=== PATIENT | female | born 1975 | race Caucasian/White ===

== ENCOUNTER 2020-08-19 17:45 | Emergency (ER) | payer MEDICAID, SELFPAY ==
[2020-08-19 17:45] VITALS: BP 142/94; PULSE 88; RESP 18; TEMP 36.6; O2SAT 97; BMI 27.4
[2020-08-19 17:47] VITALS: BP 142/94; PULSE 88; RESP 18; TEMP 36.6; O2SAT 97
[2020-08-19 17:53] VITALS: O2SAT 96
--- NOTE | 2020-08-19 18:02 | EKG12_ITS ---
Test Reason : Blood Pressure : / mmHG Vent. Rate : 076 BPM Atrial Rate : 076 BPM P-R Int : 138 ms QRS Dur : 084 ms QT Int : 364 ms P-R-T Axes : 022 019 033 degrees QTc Int : 409 ms Normal sinus rhythm Normal ECG Confirmed by BRIDGER LANGE, VICENTA ([id number]), communications editor RAKESH ZURITA ([id number]) on 08/25/2020 10:04:09 AM Referred By: MARGRET Confirmed By:ADAAM SPARKS MD
--- NOTE | 2020-08-19 18:02 | RAD_ITS ---
STUDY: X-RAY CHEST REASON FOR EXAM: Female, 44 years old. cough TECHNIQUE: 1 view COMPARISON: None. FINDINGS: The lung alaniz are well-expanded with mild infiltrates in the mid and lower lung zones. There is no demonstrated pleural abnormality. Normal size heart. Normal mediastinum and rhona. Normal visualized pulmonary arteries. Normal visualized aortic arch and descending thoracic aorta. Normal visualized thoracic spine. Normal visualized ribs, clavicles, and shoulders. There is no demonstrated abnormality of the visualized soft tissue structures of the upper abdomen. RAD/Chest 1 View (Portable) IMPRESSION: Mild bilateral mid and lower lung zone infiltrates consistent with a pneumonic process of viral, atypical or typical nature. Electronically Signed: Albania Conde MD at 18:55 EST , Service support ,
--- NOTE | 2020-08-19 18:03 | ED.DCSUM_ITS ---
History of Present Illness Chief Complaint: Cough Informant: Patient Onset: Days Context: Gradual Onset Current Severity: Mild Maximum Severity: Moderate Narrative: Patient presents with fever and body aches. She believes she has Covid. Symptoms started on the . She reports low-grade fevers with generalized body aches and cough. She has noted increased chest heaviness and chest congest ion which prompted her visit to the ER today. Past Medical History - Allergies and Home Meds Allergies/Adverse Reactions: Allergies prednisone Adverse Reaction (Verified 08/19/20 18:51) NEEDS FOLLOW-UP Primary Care Physician: Abbe Ugalde DO [COURTESY STAFF PHYSICIAN] - Past Medical History: None Lives: With Family Smoking Status: Never smoker Review of Systems General: Reports: Fever Eyes: Denies: Visual changes - bilaterally ENT: Denies: Bilateral ear pain Cardiovascular: Reports: Chest pain Respiratory: Reports: Dyspnea, Cough Gastrointestinal: Denies: Abdominal pain, Vomiting Musculoskeletal: Reports: Myalgias Skin: Denies: Rash Neurological: Denies: Headache Hematologic: Denies: Easy bruising, Easy bleeding Allergy: Denies: Uticaria Physical Exam Vital Signs/Narrative: Vital Signs Temp Pulse Resp BP Pulse Ox 08/19/20 17:47 97.9 F 88 18 142/94 H 97 08/19/20 17:45 97.9 F 88 18 142/94 H 97 Inital Vital Signs reviewed: Yes General: Well nourished, Well developed Neck: Supple Cardiovascular: Regular rate, Regular rhythm Respiratory: No distress, CTA bilaterally Abdomen: Soft, Nontender Extremities: Nontender Skin: Normal color Neurological: Alert, Oriented x3 Psychological: Normal affect Diagnostic/Tx/Re-eval Chest X-Ray - ED: 1 View, Read by ED Physician, - Impressions Chest X-Ray 08/19/20 18:02 IMPRESSION: Mild bilateral mid and lower lung zone infiltrates consistent with a pneumonic process of viral, atypical or typical nature. Electronically Signed: Albania Conde MD at 18:55 EST , Service support , Chest CTA 08/19/20 19:38 IMPRESSION: Negative for pulmonary embolus. Normal thoracic aorta. Normal heart without pericardial effusion or coronary calcifications. Numerous small groundglass infiltrates primarily peripheral consistent with pneumonia viral/atypical or typical nature. Imaging features commonly reported with Covid 19 pneumonia. Negative for pleural effusion. No acute osseous findings. No acute findings in the uppermost abdomen. Electronically Signed: Albania Conde MD at 20:48 EST , Service support , 08/19/20 18:02 Chest 1 View (Portable) [RAD] Stat 08/19/20 19:38 CTA Chest W/WO Contrast [CT] Stat Laboratory Results 08/19/20 08/19/20 08/19/20 19:00 19:00 19:00 WBC 3.9 L RBC 4.95 Hgb 14.4 Hct 44.5 MCV 89.9 MCH 29.1 MCHC 32.4 RDW Std Deviation 41.4 RDW Coeff of Lindsay 12.5 Plt Count 131 L MPV 10.2 Immature Gran % (Auto) 0.300 Neut % (Auto) 62.7 Lymph % (Auto) 26.4 [place] % (Auto) 8.2 Eos % (Auto) 2.1 Baso % (Auto) 0.3 Absolute Neuts (auto) 2.5 Absolute Lymphs (auto) 1.03 Nucleated RBC % 0 D-Dimer Quant (PE/DVT) 0.55 H* Sodium 137 Potassium 6.6 H* Chloride 110 H Carbon Dioxide 24.0 Anion Gap 3 L BUN 11 Creatinine 0.94 Estim Creat Clear Calc 64.58 Est GFR (MDRD) Af Amer 82 Est GFR (MDRD) Non-Af 68 BUN/Creatinine Ratio 11.7 Glucose 103 Calcium 8.6 Troponin I < 0.015 08/19/20 20:01 WBC RBC Hgb Hct MCV MCH MCHC RDW Std Deviation RDW Coeff of Lindsay Plt Count MPV Immature Gran % (Auto) Neut % (Auto) Lymph % (Auto) [place] % (Auto) Eos % (Auto) Baso % (Auto) Absolute Neuts (auto) Absolute Lymphs (auto) Nucleated RBC % D-Dimer Quant (PE/DVT) Sodium Potassium 3.8 Chloride Carbon Dioxide Anion Gap BUN Creatinine Estim Creat Clear Calc Est GFR (MDRD) Af Amer Est GFR (MDRD) Non-Af BUN/Creatinine Ratio Glucose Calcium Troponin I - EKG Initial EKG Interpretation: Sinus Rhythm - Sinus at 76 with no acute ischemia. - Medical Decision Making Patient presents with symptoms consistent with Covid. She believes she has Covid and I do agree with her. We will not obtain a test as it does not significantly change our treatment. Chest x-ray per my interpretation reveals mild hazy peripheral changes concerning for viral infiltrate. D-dimer is slightly elevated and CTA does confirm viral pneumonia. Patient's O2 sat is 96% on room air. We did discuss with her treatment at home. She has had bad reactions with steroids in the past and does not wish to take Decadron at this time. I will write her a prescription for naproxen to help with body aches. She will also take Mucinex. I encouraged her to get a pulse oximeter to monitor her oxygen level at home. ED Disposition - Plan for ED Patient: Disposition: Home or Assisted Living Diagnosis: COVID-19 Instructions: Coronavirus Disease 2019 (COVID-19): Overview, Coronavirus Disease 2019 (COVID-19): Prevention, Coronavirus Disease 2019 (COVID-19): Caring for Yourself or Others Prescriptions: Naproxen [Naprosyn] 500 mg PO BID PRN PRN #20 tab PRN Reason: Pain Score 4-10 Transmission Status: Pending to [id number]
--- NOTE | 2020-08-19 18:13 | NURSING ---
NO OLD EKGS
[2020-08-19] MEDS: Ketorolac 30 MG/ML Syringe IV (19:08)
[2020-08-19 19:16] LABS: Absolute Lymphocyte Count 1.03 X10^3/uL (0.83-4.51); Absolute Neutrophil Count 2.5 X10^3/uL (2.0-7.7); Basophil# 0.01 X10^3/uL; Basophil% 0.3 % (0-1); Eosinophil# 0.08 X10^3/uL; Eosinophils% 2.1 % (0-5); Hematocrit 44.5 % (37-47); Hemoglobin 14.4 g/dL (12.0-15.0); Lymphocyte # 1.03 X10^3/ul (4.0); Lymphocyte % 26.4 % (19-41); Mean Corp Hgb Conc 32.4 g/dL (32-36); Mean Corpuscular Hgb 29.1 pg (27.0-32.0); Mean Corpuscular Volume 89.9 fL (81-99); Mean Platelet Vol. 10.2 fl (6.2-12.0); Monocyte# 0.32 X10^3/uL; Monocyte% 8.2 % (0-10); NRBC Flagged by Analyzer 0 % (0-5); Neutrophil # 2.45 X10^3/uL (2.7-7.7); Neutrophil % 62.7 % (47-70); Platelet Count 131 K/mm3 (150-450); RBC Distribution Width CV 12.5 % (11.6-14.6); RBC Distribution Width SD 41.4 fl (35.1-43.9); Red Blood Count 4.95 M/mm3 (4.2-5.4); White Blood Count 3.9 K/mm3 (4.4-11.0)
[2020-08-19 19:29] LABS: Anion Gap 3 (5-15); BUN 11 mg/dL (7-18); BUN/Creat Ratio 11.7 RATIO (10-20); Calcium,Total 8.6 mg/dL (8.5-10.1); Chloride 110 mmol/L (98-107); Creatinine, Serum 0.94 mg/dL (0.55-1.02); EST Glomerular Filtration Rate 68 mL/min (>60); Est Glom Filt Rate - Afr Amer 82 mL/min (>60); Estimated Creatinine Clearance 64.58 ml/min; Glucose 103 mg/dL (74-106); Potassium 6.6 mmol/L (3.5-5.1); Sodium Level 137 mmol/L (136-145)
[2020-08-19 19:36] LABS: D-Dimer Quantitative (DVT/PE) 0.55 FEU/ug/m (0.27-0.49)
--- NOTE | 2020-08-19 19:38 | CT_ITS ---
STUDY: CTA CHEST REASON FOR EXAM: Female, 44 years old. CP, COVID POS, ELEV D-DIMER. RADIATION DOSAGE (If Supplied By Facility): CTDIvol = ( 10.485 ) mGy, DLP = ( 393.63 ) mGycm TECHNIQUE: The examination was performed with the intravenous administration of IV 100mL Isovue-370. Post-processing of the angiographic images was performed, with multiplanar reformation and 3D reconstruction. Individualized dose optimization techniques were used for this CT. COMPARISON: Chest radiograph of 08/19/2020 FINDINGS: Normal enhancement of the main pulmonary artery and right and left pulmonary arteries. Normal enhancement of the bilateral peripheral pulmonary arteries. There is no demonstrated pulmonary embolism. Normal thoracic aorta and visualized great vessels. There is no demonstrated aortic dissection. Normal heart and pericardium. Normal mediastinum. Normal hilar regions. Normal visualized trachea and bronchi. The lungs are well expanded. Numerous small groundglass peripheral infiltrates. Normal pleura. There are no pleural effusions. Normal chest wall structures. Normal osseous structures. No acute findings in the uppermost abdomen. CT/CTA Chest W/WO Contrast IMPRESSION: Negative for pulmonary embolus. Normal thoracic aorta. Normal heart without pericardial effusion or coronary calcifications. Numerous small groundglass infiltrates primarily peripheral consistent with pneumonia viral/atypical or typical nature. Imaging features commonly reported with Covid 19 pneumonia. Negative for pleural effusion. No acute osseous findings. No acute findings in the uppermost abdomen. Electronically Signed: Albania Conde MD at 20:48 EST , Service support ,
[2020-08-19 19:45] VITALS: BP 92/74; PULSE 73; RESP 14; O2SAT 96
[2020-08-19 20:28] LABS: Potassium 3.8 mmol/L (3.5-5.1)
[2020-08-19 21:00] VITALS: BP 115/73; PULSE 73; RESP 22; O2SAT 96
[2020-08-19 21:24] VITALS: BP 115/73; PULSE 71; RESP 18; O2SAT 96
== END 2020-08-19 21:32 | disposition home or self-care (01) ==
PROVIDERS: Emergency Provider Emergency Medicine; PCP Nurse Practitioner Family
DX: U07.1 COVID-19 (principal)
CPT/HCPCS: 71045; 71275; 80048; 84132; 84484; 85025; 85379; 93005; 96374; 99285; Q9967; A4216

== ENCOUNTER 2021-02-03 14:41 | Emergency (ER) | payer MEDICAID, SELFPAY ==
[2020-10-18 10:56] VITALS: BMI 28.3
[2021-02-03 14:42] VITALS: BP 160/93; PULSE 77; RESP 16; TEMP 36.3; O2SAT 97; BMI 27.4
--- NOTE | 2021-02-03 15:37 | EKG12_ITS ---
Test Reason : CP AND ARM PAIN Blood Pressure : / mmHG Vent. Rate : 066 BPM Atrial Rate : 066 BPM P-R Int : 142 ms QRS Dur : 082 ms QT Int : 360 ms P-R-T Axes : 015 019 050 degrees QTc Int : 377 ms Normal sinus rhythm Normal ECG Confirmed by SUSHIL LANGE, CHRISSY ([id number]), state editor RAKESH ZURITA ([id number]) on 02/06/2021 1:34:23 PM Referred By: JEWELS/ASHLIE Confirmed By:CHRISSY LING MD
--- NOTE | 2021-02-03 15:40 | RAD_ITS ---
STUDY: X-RAY CHEST REASON FOR EXAM: Female, 45 years old. chest pain TECHNIQUE: Single AP portable view of the chest. COMPARISON: 08/19/2020 FINDINGS: The lungs are clear and expanded. There is no demonstrated pleural abnormality. Normal size heart. Normal mediastinum and rhona. Normal visualized pulmonary arteries. Normal visualized aortic arch and descending thoracic aorta. Normal visualized thoracic spine. Normal visualized ribs, clavicles, and shoulders. There is no demonstrated abnormality of the visualized soft tissue structures of the upper abdomen. RAD/Chest 1 View (Portable) IMPRESSION: Normal x-ray examination of the chest. Electronically Signed: Ciro López MD at 16:21 EDT Tel , Service support ,
[2021-02-03 15:44] VITALS: PULSE 60; RESP 14; O2SAT 97
[2021-02-03 15:56] LABS: Absolute Lymphocyte Count 1.96 X10^3/uL (0.83-4.51); Basophil# 0.04 X10^3/uL; Basophil% 0.5 % (0-1); Eosinophil# 0.12 X10^3/uL; Eosinophils% 1.6 % (0-5); Hematocrit 41.7 % (37-47); Hemoglobin 13.8 g/dL (12.0-15.0); Lymphocyte # 1.96 X10^3/ul (0.83-4.51); Lymphocyte % 25.9 % (19-41); Mean Corp Hgb Conc 33.1 g/dL (32-36); Mean Corpuscular Hgb 29.4 pg (27.0-32.0); Mean Corpuscular Volume 88.9 fL (81-99); Mean Platelet Vol. 10.2 fl (6.2-12.0); Monocyte# 0.46 X10^3/uL; Monocyte% 6.1 % (0-10); NRBC Flagged by Analyzer 0 % (0-5); Neutrophil # 4.97 X10^3/uL (2.7-7.7); Neutrophil % 65.6 % (47-70); Platelet Count 218 K/mm3 (150-450); RBC Distribution Width CV 12.3 % (11.6-14.6); Red Blood Count 4.69 M/mm3 (4.2-5.4); White Blood Count 7.6 K/mm3 (4.4-11.0)
[2021-02-03 16:08] LABS: Anion Gap 8 (5-15); BUN 13 mg/dL (7-18); BUN/Creat Ratio 14.5 RATIO (10-20); Calcium,Total 9.9 mg/dL (8.5-10.1); Chloride 106 mmol/L (98-107); EST Glomerular Filtration Rate 72 mL/min (>60); Est Glom Filt Rate - Afr Amer 87 mL/min (>60); Estimated Creatinine Clearance 66.73 ml/min; Glucose 94 mg/dL (74-106); Potassium 3.7 mmol/L (3.5-5.1); Sodium Level 139 mmol/L (136-145)
[2021-02-03 16:19] VITALS: BP 121/76; PULSE 52; RESP 16; O2SAT 98
[2021-02-03 16:38] LABS: D-Dimer Quantitative (DVT/PE) <= 0.27 FEU/ug/m (0.27-0.49)
--- NOTE | 2021-02-03 17:00 | ED.VIS.CHEST ---
HPI History of Present Illness Chief Complaint: Chest Pain Narrative Narrative: Patient is a 45-year-old female with history of mitral valve prolapse presenting with chest pain. Patient states she has been having intermittent episodes of chest pain that in the center of her chest for the past few days. She states it will last about 2 seconds at a time. She describes it as a sudden onset of a dull ache. She states it startles her. She also said past week she had a ache in her left forearm. She is not sure if it is related. 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 She initially thought was indigestion but no Tums do not help. She had some increased fatigue. She notes the pain started again around 730 this morning which alarmed her so she came to the emergency room. She currently does not have any pain. She has associated cough or shortness of breath. She notes that she was in the shower and had a mild heaviness in her chest but was not sure if it was related to anxiety or something else. She has any leg swelling of her legs. She states he had normal bowel movements denies any black or blood in her stool. Last week she had episode of lightheadedness but this is resolved. No history of DVT or PE. No other complaints at this time. [facility] Medical History (Updated 02/03/21 @ 17:[address] Ashwini Gonzalez DO) Arthritis Asthma Back problem Endometriosis GERD (gastroesophageal reflux disease) History of pneumonia Murmur Polycystic ovaries Seasonal allergies Skin cancer skin cancer removal Home Medications drospirenone-ethinyl estradiol [CARLOS (28)] 1 tab PO DAILY 02/03/21 [History Last Taken Unknown] Allergy/AdvReac Type Severity Reaction Status Date / Time prednisone AdvReac NEEDS Verified 02/03/21 14:43 FOLLOW-UP Family History Other Alcoholism Anxiety Arthritis Breast cancer Depression Respiratory disease Surgical History History of endometrial ablation History of left knee surgery Social History (Updated 10/18/20 @ 12:[address] George Alanis DO) Smoking Status: Never smoker alcohol intake: current alcohol intake frequency: holidays/special occasions only substance use type: does not use what type of physical activity do you participate in: none ROS ROS ED Constitutional Constitutional ED: Denies fatigue or weakness Eyes Eyes: Denies blurry vision or other visual disturbances ENT ENT ED: Denies sore throat Cardiovascular Cardiovascular: Reports chest pain; Denies palpitations or racing heartbeat Respiratory/Chest Respiratory/Chest: Denies cough, dyspnea or dyspnea on exertion Gastrointestinal Gastrointestinal: Denies abdominal pain, nausea or vomiting Genitourinary Genitourinary ED: Denies decreased urination or dysuria Musculoskeletal Musculoskeletal: Reports other Details: no leg swelling ; Denies extremity pain Integumentary Denies new lesions or rash Neurologic Neurologic: Denies paresthesias or weakness Psychiatric Psychiatric: Denies anxiety or depression Hematologic/Lymphatic Hematologic/Lymphatic: Denies easy bleeding or easy bruising EXAM Physical Exam Const Vital Signs: 02/03/21 14:42 02/03/21 14:51 02/03/21 15:43 Temperature 97.4 F L Temperature Source Temporal Pulse Rate 77 Respiratory Rate 16 Respiratory Effort Normal Blood Pressure 160/93 H Blood Pressure Mean 115 Pulse Ox 97 Oxygen Delivery Method Room Air Room Air 02/03/21 15:44 02/03/21 16:19 02/03/21 17:25 Temperature Temperature Source Pulse Rate 60 52 L 108 H Respiratory Rate 14 16 16 Respiratory Effort Blood Pressure 121/76 H 106/78 Blood Pressure Mean 91 Pulse Ox 97 98 98 Oxygen Delivery Method Room Air Room Air 02/03/21 17:27 Temperature Temperature Source Pulse Rate 108 H Respiratory Rate 16 Respiratory Effort Blood Pressure 106/78 Blood Pressure Mean 87 Pulse Ox 98 Oxygen Delivery Method Room Air Positive alert and oriented x3 HEENT Reports normocephalic and moist mucous membranes normocephalic Mouth ED: Yes moist mucous membranes normal Eyes PERRL and EOMs intact bilaterally General Eye ED: Yes normal appearance of both eyes Pupil: PERRL Neck supple and no JVD Lymph Lymphatic: no lymphadenopathy noted Chest Wall inspection of chest normal and palpation of chest normal Resp normal respiratory effort and normal air movement Cardio regular rate, regular rhythm and no murmurs Peripheral Pulses: pulses 2+ throughout GI normal to inspection, nondistended, normoactive bowel sounds, non-tender and non-distended Back/Spine no CVA tenderness and normal to inspection Extremity normal to inspection and full ROM Neuro oriented x3, moves all extremities and no focal motor deficits Sensorium / Orientation: awake Psych mental status grossly normal and thought process normal Skin no rashes or lesions noted and no petechiae Heart Score History: Slightly/Non-Suspicious ECG: Normal Age: </= 45 years Risk Factors: No Risk Factors Troponin: </= Normal Limit Score: 0 MDM MDM MDM Narrative Medical decision making narrative: Patient is evaluated for chest pain. She appears nontoxic no acute distress. Patient chest pain seems atypical for ACS. EKG is normal. Troponin is normal. Her D-dimer is normal. She is otherwise low risk for PE and I do not think a CTA is indicated. No signs of pneumonia or infection. At this time exact cause of her chest pain is not clear for think she stable for outpatient follow-up. Patient's heart score is 0. She does have an appointment to follow-up with her research and development director next week. Lab Data Labs: Laboratory Results - last 24 hr 02/03/21 02/03/21 02/03/21 15:06 15:06 15:57 WBC 7.6 RBC 4.69 Hgb 13.8 Hct 41.7 MCV 88.9 MCH 29.4 MCHC 33.1 RDW Std Deviation 40.0 RDW Coeff of Lindsay 12.3 Plt Count 218 MPV 10.2 Immature Gran % (Auto) 0.300 Neut % (Auto) 65.6 Lymph % (Auto) 25.9 [place] % (Auto) 6.1 Eos % (Auto) 1.6 Baso % (Auto) 0.5 Absolute Neuts (auto) 5.0 Absolute Lymphs (auto) 1.96 Nucleated RBC % 0 D-Dimer Quant (PE/DVT) <= 0.27 Sodium 139 Potassium 3.7 Chloride 106 Carbon Dioxide 25.0 Anion Gap 8 BUN 13 Creatinine 0.90 Estim Creat Clear Calc 66.73 Est GFR (MDRD) Af Amer 87 Est GFR (MDRD) Non-Af 72 BUN/Creatinine Ratio 14.5 Glucose 94 Calcium 9.9 Troponin I < 0.015 Radiography Chest X-Ray - ED: 1 View, Read by ED Physician, Read by Radiologist and Normal Diagnostic Testing: Radiology Impression Chest X-Ray 02/03/21 15:40 IMPRESSION: Normal x-ray examination of the chest. Electronically Signed: Ciro López MD at 16:21 EDT Tel , Service support , Rhythm Strip Rhythm Strip: Sinus Rhythm Rate: 66 Ectopy: None EKG Initial EKG: Attestation: I personally reviewed and interpreted this EKG as follows: Interpretation: Sinus Rhythm Comments: Normal sinus rhythm at a rate of 66 Normal axis Normal intervals Normal ST segments Discharge Plan Triage Chief Complaint: Chest Pain ED Provider: Ashwini Gonzalez Dx/Rx/DC Orders Clinical Impression: Chest pain of uncertain etiology Instructions: ED Chest Pain, Uncertain Cause Prescriptions: No Action drospirenone-ethinyl estradiol [CARLOS (28)] 3-0.02 mg Tablet 1 tab PO DAILY RF: 0 Primary Care Provider: George Alanis Referrals: George Alanis, [Primary Care Provider] - Activity Restrictions/Additional Instructions: Please follow-up with your research and development director as scheduled next week. Return the emergency room with any worsening symptoms. At this time you not appear to be having a heart attack or blood clot in your lungs or pneumonia. Disposition Disposition: Home, self care Discharge Date/Time: 02/03/21 17:29
[2021-02-03 17:25] VITALS: BP 106/78; PULSE 108; RESP 16; O2SAT 98
[2021-02-03 17:27] VITALS: BP 106/78; PULSE 108; RESP 16; O2SAT 98
== END 2021-02-03 17:29 | disposition home or self-care (01) ==
PROVIDERS: Emergency Provider Emergency Medicine; PCP Family Medicine
DX: R07.9 Chest pain, unspecified (principal); M19.90 Unspecified osteoarthritis, unspecified site; J45.909 Unspecified asthma, uncomplicated; K21.9 Gastro-esophageal reflux disease without esophagitis
CPT/HCPCS: 71045; 80048; 84484; 85025; 85379; 93005; 99284; A4216

== ENCOUNTER 2021-03-19 08:13 | Inpatient (IN) | payer MEDICAID, SELFPAY ==
[2021-03-19 08:14] VITALS: BP 110/60; PULSE 72; RESP 16; TEMP 36.9; O2SAT 96; BMI 29.2
--- NOTE | 2021-03-19 08:35 | ED.VIS.BACK ---
HPI History of Present Illness Chief Complaint: Back Informant: patient Onset/Context/Timing Injury: bending Narrative Narrative: Patient presents with severe right lower back pain. Patient states has been having trouble with her back for the last 10 years intermittently. It has been acting up recently and she is been taking Aleve regularly. Patient states she got this morning and felt well. 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 EMS gave her 50 mcg of fentanyl in route for pain control. She denies any prior back surgery or injections. [facility] Medical History Arthritis Asthma Back problem Endometriosis GERD (gastroesophageal reflux disease) History of pneumonia Murmur Polycystic ovaries Seasonal allergies Skin cancer skin cancer removal Home Medications drospirenone-ethinyl estradiol [Vestura (28)] 1 tab PO DAILY 03/19/21 [History Last Taken Unknown] Allergy/AdvReac Type Severity Reaction Status Date / Time prednisone AdvReac NEEDS Verified 02/03/21 14:43 FOLLOW-UP Family History Other Alcoholism Anxiety Arthritis Breast cancer Depression Respiratory disease Surgical History History of endometrial ablation History of left knee surgery Social History Smoking Status: Never smoker alcohol intake: current alcohol intake frequency: holidays/special occasions only substance use type: does not use what type of physical activity do you participate in: none ROS ROS ED Constitutional Constitutional ED: Denies chills or fever(s) Eyes Eyes: Denies change in vision ENT ENT ED: Denies sore throat Cardiovascular Cardiovascular: Denies chest pain Respiratory/Chest Respiratory/Chest: Denies cough or dyspnea Gastrointestinal Gastrointestinal: Denies abdominal pain, diarrhea, nausea or vomiting Genitourinary Genitourinary ED: Denies dysuria Musculoskeletal Musculoskeletal: Reports back pain Integumentary Denies rash Neurologic Neurologic: Denies headache(s) or weakness Psychiatric Psychiatric: Denies anxiety or depression Endocrine Endocrinology: Denies polydipsia or polyuria Allergic/Immunologic Allergic/Immunologic ED: Denies urticaria EXAM Physical Exam Const Vital Signs: 03/19/21 08:14 03/19/21 10:13 Temperature 98.5 F Temperature Source Oral Pulse Rate 72 78 Respiratory Rate 16 16 Blood Pressure 110/60 122/78 H Blood Pressure Mean 76 92 Pulse Ox 96 96 Oxygen Delivery Method Room Air Room Air Positive well nourished and well developed General Appearance ED: well developed HEENT Reports normocephalic and head/scalp atraumatic Eyes PERRL and EOMs intact bilaterally Neck supple Chest Wall inspection of chest normal and palpation of chest normal Resp normal respiratory effort and clear to auscultation bilaterally Cardio regular rate and regular rhythm GI normal to inspection, nondistended, normoactive bowel sounds Palpation: soft Back/Spine no CVA tenderness Back/Spine Narrative: No midline thoracic or lumbar tenderness. Reproducible tenderness over the right sciatic notch. Extremity normal to inspection Neuro oriented x3 and no sensory deficits noted Sensorium / Orientation: alert Motor Exam: strength 5/5 throughout Psych mental status grossly normal Skin no rashes or lesions noted MDM MDM MDM Narrative Medical decision making narrative: Patient had received fentanyl with the squad. She is given a dose of morphine and Zofran here. Treatment and Re-Evaluation Comments:: On repeat evaluation nursing staff does report patient had extremely hard time making it to the bathroom and back. This did exacerbate her pain again. She is given a dose of Dilaudid. At this time patient still has significant pain. She has difficulty finding a position of comfort. We did discuss x-rays and CT, however this will not show us the nerves and discs that we are most interested in. I do not feel will be beneficial. At this time I will speak with hospitalist regarding admission for intractable pain and see if they may be able to obtain an MRI of her back tomorrow. Discharge Plan Triage Chief Complaint: Back ED Provider: Camille Moore Dx/Rx/DC Orders Clinical Impression: Lumbar radiculopathy, right, Intractable back pain Prescriptions: No Action drospirenone-ethinyl estradiol [Vestura (28)] 3-0.02 mg tablet 1 tab PO DAILY RF: 0 Primary Care Provider: George Alanis Referrals: George Alanis, [Primary Care Provider] - Disposition Disposition: [facility]
[2021-03-19] MEDS: cycloBENZAPRine HCl 10 MG Tablet PO ×3 (08:45→21:16)
[2021-03-19] MEDS: Ondansetron 4 MG/2 ML Vial IV (08:45)
[2021-03-19] MEDS: Morphine 4 MG/ML Syringe IV ×4 (08:45→22:45)
[2021-03-19 10:13] VITALS: BP 122/78; PULSE 78; RESP 16; O2SAT 96
[2021-03-19] MEDS: HYDROmorphone 0.5 MG/0.5 ML SYRINGE IV (10:14)
--- NOTE | 2021-03-19 11:22 | HP.PCM.HOS_ITS ---
HPI - General General Date of Admission: 03/19/21 Date of Service: 03/19/21 Chief Complaint: Acute on chronic back pain - 2 days HPI Narrative EMMANUELLE RODRÍGUEZ, is a 45 F who presents severe back pain, that restarted 2 to 3 days ago and worse this morning. Patient gives a history of chronic back pain 10 years ago was lifting weights. She went to see a chiropractor, had a bruise at the back. She has been managing pain on and off. Sometimes she takes Aleve. Over the last 2 to 3 days, pain returned. Pain is worse in her right low back as well as her buttocks radiating down her thigh. She was able to work but has severe pain and spasms in the back at the end of her work. She has been taking naproxen for the last couple of days. She has tingling and numbness in her right side. She denies incontinence of urine or stool. She denies any fever or chills or weight loss. [facility] Medical History (Updated 03/19/21 @ 13:[address] Jessica Blank MD) Arthritis Asthma Back problem COVID-19 determined by clinical diagnostic criteria Endometriosis GERD (gastroesophageal reflux disease) History of pneumonia Murmur Polycystic ovaries Seasonal allergies Skin cancer skin cancer removal Home Medications drospirenone-ethinyl estradiol [Vestura (28)] 1 tab PO DAILY 03/19/21 [History Last Taken Unknown] Allergy/AdvReac Type Severity Reaction Status Date / Time prednisone AdvReac NEEDS Verified 02/03/21 14:43 FOLLOW-UP Family History Other Alcoholism Anxiety Arthritis Breast cancer Depression Respiratory disease Surgical History (Updated 03/19/21 @ 13:[address] Jessica Blank MD) History of endometrial ablation History of left knee surgery Status post surgical removal of malignant neoplasm of skin Social History Smoking Status: Never smoker alcohol intake: current alcohol intake frequency: holidays/special occasions only substance use type: does not use what type of physical activity do you participate in: none ROS ROS Narrative Constitutional: Denies: Anorexia, Chills, Fever, Night Sweats, Weight Change, malaise, weakness, Fatigue. Eyes: Denies: Blurred vision, Cataracts, Conjunctivae Inflammation, Pain, Redness, Vision Change HEENT: Denies: Difficulty Hearing, Difficulty Swallowing, Head Aches, Hearing Changes, Sinus Congestion, Sinus Drainage Cardiovascular: Denies: Chest Pain, Orthopnea, Palpitations Respiratory: Denies: Cough, Shortness of breath at rest, Sputum production Gastrointestinal: Denies: Abdominal Pain, Nausea, Vomiting Genitourinary: Denies: Dysuria Musculoskeletal:See HPI Skin: Denies: Rash, Wounds Neurological: Denies: Numbness, Tingling, Focal weakness Vital Signs Vital Signs Vital Signs: 03/19/21 08:14 03/19/21 10:13 Temperature 98.5 F Temperature Source Oral Pulse Rate 72 78 Respiratory Rate 16 16 Blood Pressure 110/60 122/78 H Blood Pressure Mean 76 92 Pulse Ox 96 96 Oxygen Delivery Method Room Air Room Air Weight Weight: 77.4 kg Body Mass Index (BMI) 29.2 Physical Exam Narrative Physical exam: General: Alert, Oriented x3, Cooperative, No apparent distress, Well developed, in moderate distress HEENT: Atraumatic Oral: Moist Mucosa Neck: Supple Lungs: Clear to auscultation Cardiovascular: HS I+II, regular, no murmurs Abdomen: Bowel Sounds Present, Soft, Non Tender, no palpable organs Extremities: No edema Skin: No rashes, No breakdown Musculoskeletal: Tenderness over the low back especially on her right as well as her buttocks, straight leg test is positive Assessment & Plan Assessment/Plan (1) Intractable back pain: (2) Lumbar radiculopathy, right: PLAN: 1. Acute intractable low back pain, likely secondary to degenerative disc disease No reported red flags for back pain Patient has been taking [id number] NSAIDs with no effect Admit to MedSurg, scheduled Tylenol, Lidoderm patch, oxycodone and morphine as needed MRI of the lumbar spine PT/OT to evaluate and treat Pain management consult - Dr. Orantes 2. Rest of her chronic medical conditions remained stable 3. DVT prophylaxis?low risk, early ambulation recommended Charges/Coding Visit Charges OBSV E&M: 55741 Initial observation care L3
[2021-03-19 12:12] VITALS: BMI 28.0
[2021-03-19 12:16] VITALS: BP 116/74; PULSE 66; RESP 18; TEMP 36.8; O2SAT 96
[2021-03-19] MEDS: Lidocaine 5% Patch 2 PATCH TOPICAL (12:39)
[2021-03-19] MEDS: Acetaminophen 500 MG Tablet 1000 MG PO ×2 (13:37→21:23)
[2021-03-19 14:24] LABS: Absolute Lymphocyte Count 1.42 X10^3/uL (0.83-4.51); Absolute Neutrophil Count 6.3 X10^3/uL (2.0-7.7); Basophil# 0.04 X10^3/uL; Basophil% 0.5 % (0-1); Eosinophil# 0.02 X10^3/uL; Eosinophils% 0.2 % (0-5); Hematocrit 40.3 % (37-47); Hemoglobin 13.7 g/dL (12.0-15.0); Lymphocyte # 1.42 X10^3/ul (0.83-4.51); Lymphocyte % 17.4 % (19-41); Mean Corpuscular Hgb 29.9 pg (27.0-32.0); Mean Platelet Vol. 9.9 fl (6.2-12.0); Monocyte% 4.9 % (0-10); NRBC Flagged by Analyzer 0 % (0-5); Neutrophil # 6.28 X10^3/uL (2.7-7.7); Neutrophil % 76.8 % (47-70); Platelet Count 230 K/mm3 (150-450); RBC Distribution Width CV 12.4 % (11.6-14.6); RBC Distribution Width SD 40.2 fl (35.1-43.9); Red Blood Count 4.58 M/mm3 (4.2-5.4); White Blood Count 8.2 K/mm3 (4.4-11.0)
[2021-03-19 14:40] LABS: AST(SGOT) 17 U/L (15-37); Alanine Aminotransfer ALT/SGPT 22 U/L (13-56); Albumin, Serum 3.5 g/dL (3.2-5.0); Alkaline Phosphatase 34 U/L (45-117); Anion Gap 5 (5-15); BUN 10 mg/dL (7-18); BUN/Creat Ratio 13.9 RATIO (10-20); Calcium,Total 8.7 mg/dL (8.5-10.1); Chloride 109 mmol/L (98-107); Creatinine, Serum 0.72 mg/dL (0.55-1.02); EST Glomerular Filtration Rate 92 mL/min (>60); Est Glom Filt Rate - Afr Amer 111 mL/min (>60); Estimated Creatinine Clearance 83.41 ml/min; Globulin 3.4 g/dL (2.2-4.2); Glucose 110 mg/dL (74-106); Potassium 4.1 mmol/L (3.5-5.1); Protein, Total 6.9 g/dL (6.4-8.2); Sodium Level 138 mmol/L (136-145)
[2021-03-19] MEDS: oxyCODONE 5 MG Tablet 10 MG PO ×2 (15:29→21:16)
[2021-03-19 18:00] VITALS: BP 112/67; PULSE 67; RESP 18; TEMP 36.6; O2SAT 98
[2021-03-19] MEDS: 0.9% Saline Lock 10 ML Syringe IV ×2 (18:30→22:45)
[2021-03-19 21:05] VITALS: BP 127/85; PULSE 79; RESP 18; TEMP 37.1; O2SAT 100
[2021-03-19] MEDS: LORazepam 1 MG Tablet PO (22:44)
[2021-03-20] VITALS (7 sets, daily range): BP systolic 114–138; BP diastolic 70–82; PULSE 68–90; RESP 12–20; TEMP 36.3–37.1; O2SAT 91–100
[2021-03-20] MEDS: oxyCODONE 5 MG Tablet 10 MG PO ×5 (04:04→22:33)
[2021-03-20] MEDS: Acetaminophen 500 MG Tablet 1000 MG PO ×3 (06:16→21:39)
[2021-03-20] MEDS: cycloBENZAPRine HCl 10 MG Tablet PO ×3 (09:06→23:47)
[2021-03-20] MEDS: Lidocaine 5% Patch 2 PATCH TOPICAL (09:08)
[2021-03-20] MEDS: Morphine 4 MG/ML Syringe IV ×5 (09:12→21:46)
[2021-03-20] MEDS: 0.9% Saline Lock 10 ML Syringe IV ×6 (09:14→23:38)
--- NOTE | 2021-03-20 10:48 | NURSING ---
This nurse was called into room by pt wanting to see nurse. Pt still restless and irritable, despite Morphine IV, oxyir po, and Flexeril po all given this morning at 0906.This nurse Cortexted Dr. Andre at this time.
--- NOTE | 2021-03-20 11:01 | NURSING ---
This nurse called to room by pt. Pt still having pain despite Morphine 4mg IV, Flexeril, and oxyir 10mg po. Pt is restless and irritable. Pt states she wants predisone even though she is allergic to it. I dont care, if it helps I'll take it. is present in room. Pt states the allergy she has to prednisone is that it makes me crazy. Pt also stated, but that was on a high dose. Pt really wants to take it to see if it helps her pain. Dr. Andre aware. Ordered Decadron, Gabapentin and Morphine x1.
[2021-03-20] MEDS: Gabapentin 300 MG Capsule PO (11:19)
[2021-03-20] MEDS: dexAMETHasone 4 MG/ML Vial IV ×3 (11:19→23:39)
--- NOTE | 2021-03-20 11:23 | NURSING ---
pt screaming. Can be heard down the galan. This nurse walked in with additional morphine and Gabapentin and Decadron.
--- NOTE | 2021-03-20 11:47 | MRI_ITS ---
STUDY: MRI LUMBAR SPINE WITHOUT CONTRAST REASON FOR EXAM: Female, 45 years old. Acute intractable low back pain, right leg pain TECHNIQUE: Standardized fat and water weighted pulse sequences were obtained in the sagittal and axial planes. COMPARISON: None FINDINGS: T12-L1: Normal endplates. Normal disc height, hydration and morphology. Normal bilateral facet joints. Normal central canal and bilateral lateral recesses. Normal bilateral intervertebral neural foramina. Normal lumbar lordosis. There is no substantial scoliosis. Normal conus medullaris that terminates at the L1/L2. L1-2: Normal endplates. Normal disc height, hydration and morphology. Normal bilateral facet joints. Normal central canal and bilateral lateral recesses. Normal bilateral intervertebral neural foramina. L2-3: Normal endplates. Normal disc height, hydration and morphology. Normal bilateral facet joints. Normal central canal and bilateral lateral recesses. Normal bilateral intervertebral neural foramina. L3-4: Normal endplates. Normal disc height, hydration and morphology. Normal bilateral facet joints. Normal central canal and bilateral lateral recesses. Normal bilateral intervertebral neural foramina. L4-5: Normal endplates. Normal disc height, hydration and morphology. Normal bilateral facet joints. Normal central canal and bilateral lateral recesses. Normal bilateral intervertebral neural foramina. L5-S1: Moderate size central disc protrusion with an inferiorly extending right paracentral extrusion produces moderate spinal stenosis, severe right lateral recess stenosis with effacement of the right S1 and S2 nerve roots, moderate left lateral recess stenosis with abutment of the left S1 nerve root and no neural foraminal stenosis. Normal visualized sacral ala. Normal visualized paraspinous soft tissue structures. MRI/Spine Lumbar (Routine) IMPRESSION: Focal degenerative disc disease at L5/S1 asymmetric the right as described above. Electronically Signed: Ciro López MD at 14:34 EDT Tel , Service support ,
--- NOTE | 2021-03-20 11:52 | NURSING ---
Dr. Andre in room, talking with pt and . Ativan 1mg IV ordered.
[2021-03-20] MEDS: LORazepam 2 MG/ML Syringe 1 MG IV (12:03)
--- NOTE | 2021-03-20 16:58 | CONS.ORTHO ---
HPI Consult Data Date of Consult: 03/20/21 HPI Narrative HPI Narrative: EMMANUELLE RODRÍGUEZ, is a 45 F who presents with acute low back pain rating to the right lower extremity for the past day. She states that 1 day ago she was stretching in the morning and felt a pop in her back. This was followed by severe pain in the right lumbar region radiating to the right gluteal region, the right posterior thigh and occasionally into the right anterolateral leg and dorsum of the foot. She states that she has had episode of low back pain in the past for many years but nothing as severe as this. She denies any history of back surgeries. She denies any other acute numbness tingling weakness or changes in bowel or bladder function. She subsequently presented to [facility] emergency department where she was admitted for pain control and spine surgery was consulted for evaluation and management. A lumbar MRI scan was performed showing a large midline/right paracentral disc herniation. The patient was seen and examined. She is resting comfortably in bed. She is accompanied by her who contributed to the medical history. Her pain is well controlled at this time. However when she attempts to stand and mobilize she does get increasing pain in the right lumbosacral region radiating to the right gluteal region and posterior thigh. [facility] Medical History (Updated 03/20/21 @ 17:[address] Montana Real DO) Arthritis Asthma Back problem COVID-19 determined by clinical diagnostic criteria Endometriosis GERD (gastroesophageal reflux disease) History of pneumonia Murmur Polycystic ovaries Seasonal allergies Skin cancer skin cancer removal Home Medications drospirenone-ethinyl estradiol [Vestura (28)] 1 tab PO DAILY 03/19/21 [History Last Taken Unknown] Allergy/AdvReac Type Severity Reaction Status Date / Time prednisone AdvReac NEEDS Verified 02/03/21 14:43 FOLLOW-UP Family History Other Alcoholism Anxiety Arthritis Breast cancer Depression Respiratory disease Surgical History (Updated 03/19/21 @ 13:[address] Jessica Blank MD) History of endometrial ablation History of left knee surgery Status post surgical removal of malignant neoplasm of skin Social History Smoking Status: Never smoker alcohol intake: current alcohol intake frequency: holidays/special occasions only substance use type: does not use what type of physical activity do you participate in: none Vital Signs Vital Signs Vital Signs: 03/19/21 18:00 03/19/21 21:05 03/19/21 21:10 Temperature 97.9 F 98.7 F Temperature Source Oral Oral Pulse Rate 67 79 Pulse Strength Normal (2+) Respiratory Rate 18 18 Respiratory Effort Respiratory Depth Respiratory Pattern Blood Pressure 112/67 127/85 H Blood Pressure Mean 82 99 Blood Pressure Source Monitor Monitor Blood Pressure Position Sitting Semi-Fowlers Blood Pressure Location Left Arm Left Arm Pulse Ox 98 100 Oxygen Delivery Method Room Air Room Air 03/19/21 21:26 03/20/21 03:52 03/20/21 09:21 Temperature 98 F 98.5 F Temperature Source Oral Oral Pulse Rate 68 71 Pulse Strength Respiratory Rate 16 20 H Respiratory Effort Normal Non-Labored Respiratory Depth Normal Respiratory Pattern Normal Blood Pressure 114/81 H 128/74 H Blood Pressure Mean 92 92 Blood Pressure Source Monitor Blood Pressure Position Semi-Fowlers Blood Pressure Location Left Arm Pulse Ox 100 96 Oxygen Delivery Method Room Air Room Air Room Air 03/20/21 10:00 03/20/21 12:32 03/20/21 12:46 Temperature Temperature Source Pulse Rate 82 75 Pulse Strength Normal (2+) Respiratory Rate 13 13 Respiratory Effort Respiratory Depth Respiratory Pattern Blood Pressure 138/70 H 121/74 H Blood Pressure Mean 92 89 Blood Pressure Source Monitor Monitor Blood Pressure Position Supine Supine Blood Pressure Location Right Arm Right Arm Pulse Ox 98 93 Oxygen Delivery Method Room Air Room Air 03/20/21 12:56 03/20/21 15:17 Temperature 98.8 F Temperature Source Oral Pulse Rate 82 89 Pulse Strength Respiratory Rate 12 18 Respiratory Effort Respiratory Depth Respiratory Pattern Blood Pressure 122/78 H 134/78 H Blood Pressure Mean 92 96 Blood Pressure Source Monitor Monitor Blood Pressure Position Supine Semi-Fowlers Blood Pressure Location Right Arm Left Arm Pulse Ox 91 98 Oxygen Delivery Method Room Air Room Air Weight Weight: 163 lb 12.855 oz Body Mass Index (BMI) 28.0 Physical Exam Const alert, oriented x3 and no apparent distress General Appearance: cooperative and comfortable HEENT head/scalp atraumatic Eyes EOMs intact bilaterally and conjunctivae normal Neck full ROM and supple Resp normal respiratory effort and normal air movement Cardio regular rate Peripheral Pulses: pulses 2+ throughout GI soft to palpation, non-tender and non-distended Back/Spine Cervical Spine: cervical ROM normal Thoracic Spine / Upper Back: normal to inspection Lumbar Spine / Lower Back: ROM limited, pain with ROM, paraspinal muscle tenderness right and straight leg raise positive right Extremity full ROM, normal capillary refill, no clubbing, cyanosis or edema and no calf tenderness Peripheral Pulses: Yes pulses 2+ throughout Skin General Skin Exam: no breakdown Neuro oriented x3, CN's II-XII intact bilaterally, moves all extremities, no focal motor deficits, no sensory deficits noted and deep tendon reflexes 2+ bilaterally Motor Exam: strength 5/5 throughout and muscle tone normal throughout Lab / Micro Data Result Diagrams: 03/19/21 14:08 03/19/21 14:08 Radiology Impression Lumbar Spine MRI 03/20/21 11:47 IMPRESSION: Focal degenerative disc disease at L5/S1 asymmetric the right as described above. Electronically Signed: Ciro López MD at 14:34 EDT Tel , Service support , Assessment & Plan Assessment/Plan (1) Lumbar radiculopathy, right: (2) Lumbar herniated disc: PLAN: I had a lengthy discussion with the patient. I reviewed her imaging with her. Her lumbar MRI shows a large disc herniation at L5-S1 in the midline/right paracentral region. I feel this is contributing significantly to her complaints. After discussing the risk benefits and alternatives and answering all of her questions I recommend a bilateral L5-S1 transforaminal epidural steroid injection. She agrees to proceed. We will get her scheduled for this injection. The plan is to get her pain manageable enough to have her discharged home and follow-up in clinic. We did discuss surgical treatment options should injections fail to control her pain. For her this would necessitate a right L5-S1 laminotomy discectomy, possible laminectomy. She understands and agrees with the treatment plan. (3) Intractable back pain:
[2021-03-20] MEDS: Gabapentin 400 MG Capsule PO ×2 (18:26→23:38)
--- NOTE | 2021-03-20 20:24 | PN.HOSP_ITS ---
Subjective Subjective Patient was seen and examined today, she had severe pain down her right leg today, I placed her on Neurontin and Decadron IV, MRI of the lumbar spine was obtained which showed an L5-S1 ruptured disc. I had Dr. Real (orthopedic surgery) talk with the patient and he will carry out an epidural injection tomorrow. He stated that the patient may have to eventually undergo a discectomy and/or fusion. Patient states that she is feeling groggy-I told her it was probably secondary to the Neurontin. Objective Data Objective Data Vital Signs: Vital Signs Temp Pulse Resp BP Pulse Ox 98.8 F 89 18 134/78 H 98 03/20/21 15:17 03/20/21 15:17 03/20/21 15:17 03/20/21 15:17 03/20/21 15:17 Oxygen Delivery Method Room Air Weight: 74.3 kg Body Mass Index (BMI) 28.0 Intake & Output: Intake and Output for Last 24 Hours 03/18/21 03/19/21 03/20/21 23:59 23:59 23:59 Intake Total 400 / 600 1160 / 1160 Balance 400 / 600 1160 / 1160 Lab / Micro Data Result Diagrams: 03/19/21 14:08 03/19/21 14:08 Radiography Diagnostic Testing: Radiology Impression Lumbar Spine MRI 03/20/21 11:47 IMPRESSION: Focal degenerative disc disease at L5/S1 asymmetric the right as described above. Electronically Signed: Cior López MD at 14:34 EDT Tel , Service support , Physical Exam Const alert, oriented x3 and healthy appearing General Appearance: cooperative, well kempt and well developed Orientation / Consciousness: awake, oriented to person, oriented to place and oriented to time HEENT normocephalic, head/scalp atraumatic and moist oral mucous membranes Head and Scalp: normocephalic Eyes PERRL, EOMs intact bilaterally and conjunctivae normal Neck nuchal rigidity, supple, no JVD, thyroid normal and no carotid bruits General: trachea midline Resp normal respiratory effort, no retractions, no use of accessory muscles and clear to auscultation bilaterally Auscultation: Negative for rales, rhonchi or wheezes Cardio regular rate, regular rhythm, S1 normal heart sound, S2 normal heart sound, no murmurs, no rub and no gallops GI normal to inspection, nondistended, normoactive bowel sounds, soft to palpation, non-tender and non-distended Extremity normal to inspection and no clubbing, cyanosis or edema Skin no rashes or lesions noted General Skin Exam: no breakdown Neuro oriented x3, CN's II-XII intact bilaterally, no focal motor deficits and no sensory deficits noted Sensorium / Orientation: awake and alert Speech: speech normal Psych thought process normal and affect normal Assessment & Plan Assessment/Plan (1) Lumbar radiculopathy, right: PLAN: 1. Acute L5-S1 ruptured disc-patient will undergo an epidural in jection versus a nerve block tomorrow by Dr. Real, continue present medications #2 right-sided lumbar radiculopathy secondary to #1 Charges/Coding Visit Charges Inpatient E&M: 58173 Subs Hosp L2
[2021-03-21] VITALS (9 sets, daily range): BP systolic 98–137; BP diastolic 66–82; PULSE 51–104; RESP 16–18; TEMP 36.2–37.2; O2SAT 93–100
[2021-03-21] MEDS: oxyCODONE 5 MG Tablet 10 MG PO ×2 (03:38→08:37)
[2021-03-21] MEDS: Acetaminophen 500 MG Tablet 1000 MG PO ×2 (06:25→14:28)
[2021-03-21] MEDS: Gabapentin 400 MG Capsule PO ×2 (06:25→14:28)
[2021-03-21] MEDS: 0.9% Saline Lock 10 ML Syringe IV ×3 (06:26→18:16)
[2021-03-21] MEDS: dexAMETHasone 4 MG/ML Vial IV ×3 (06:29→18:16)
[2021-03-21] MEDS: cycloBENZAPRine HCl 10 MG Tablet PO (08:38)
[2021-03-21] MEDS: Lidocaine 5% Patch 2 PATCH TOPICAL (08:38)
--- NOTE | 2021-03-21 10:55 | CASEMGMT ---
RN VERÓNICA Assessment: Face to Face with pt for initial transition planning/care coordination assessment. RN CM introduced self and role at [facility], pt voices understanding and consents to assessment. Pt is A/O x4 and answers all questions appropriately at this time. Pt lying in bed in no distress unless moving. Care providers, pharmacy, and demographics verified/updated. Admitting Dx: back pain PCP: Khadijah Alanis Specialists: Vidhi Nolasco, cardio Preferred Pharmacy: [facility] Insurance: [employer] Prescription Benefit: yes LW/HPOA: Pt denies having a LW/DPOA. LNOK: Gino Pagan, Living Arrangements: Pt lives in a single story ranch with no steps to enter with and two adult sons. Pt is I in ADL's and denies concerns at home. Transportation: Pt drives self and denies concerns with transportation. DME/HHC/SNF: Pt denies having DME, hx of HHC or SNF. Pt states no concerns with going home at time of dc. Pt states no further concerns/needs. CM to follow. Advised pt to ask CM if any further question/concerns/needs arise, voices understanding. Pt Goal: Home Plan: Home with family support.
--- NOTE | 2021-03-21 13:10 | RAD_ITS ---
PROCEDURE: Bilateral transforaminal steroid injection at the L5-S1 level. DATE OF EXAMINATION: 03/21/2021. INDICATION: Female, 45 years old. Chronic low back pain. FLUOROSCOPY TIME (if supplied): (17 seconds) minutes/seconds. One image was submitted. RAD/Spine 1 View Any Level IMPRESSION: Intraoperative imaging provided for bilateral L5-S1 transforaminal steroid injection. Electronically Signed: Ivan Figueroa MD at 20:18 EDT , Service support ,
[2021-03-21] MEDS: Lidocaine 1% (20 ml mdv) 20 ML Vial (13:29)
[2021-03-21] MEDS: Sodium Bicarbonate 50 MEQ/50 ML Vial (13:29)
[2021-03-21] MEDS: Triamcinolone Acetonide 40 MG/ML Vial (13:29)
[2021-03-21] MEDS: Bupivacaine 0.25% 30 ML Vial (13:29)
--- NOTE | 2021-03-21 13:32 | OP.PCM_ITS ---
Problems Associated Problem List Diagnoses (1) Lumbar radiculopathy, right: (2) Intractable back pain: (3) Lumbar herniated disc: Operative Report Date of Procedure: 03/21/21 Diagnosis: 1. L5-S1 herniated nucleus pulposus 2. L5-S1 degenerative disc disease 3. L5-S1 spondylosis, stenosis 4. intractable back pain Surgeon: Montana Real DO Procedure performed: Bilateral L5-S1 transforaminal epidural steroid injection. Complications none Blood loss none Anesthesia MAC local The patient was seen in the preop holding area. Risks and benefits of the procedure were explained to the patient and informed consent was obtained. The patient was transported to the procedure room and positioned prone on the fluoroscopy table. The lumbar region was prepped and draped in a sterile fashion. Using fluoroscopic guidance in the AP view, vertebral bodies were identified. Using cephalocaudad tilt, superior endplates were squared and ipsilateral obliquing was performed until the pedicles came into view. The target point is lateral to the lamina below the pedicle. At no time did the needle cross the line formed medially by the pedicles. Corresponding skin and subcutaneous tissue needle entry sites were anesthetized with a 27-gauge 1.5 inch needle using 1% lidocaine. Subsequently a 22-gauge 5 inch spinal needle with a curved tip was advanced via a subarticular approach to enter the neuroforamen at bilateral L5-S1. Position was confirmed in AP, oblique, and lateral views. Subsequently an AP view, Contrast was injected. Positive epidural spread was noted. No intravascular or intrathecal uptake was noted. After negative aspiration, bupivacaine 0.25% 1 mL +1 mL of Kenalog 40 mg/mL for a total volume of 2 mL was injected in 1 mL aliquots to each level. The needles were removed. No complications were noted. The patient was given sterile Band- Aids as dressings and transported to recovery room and monitored until discharge criteria were met.
--- NOTE | 2021-03-21 17:47 | PCM.DC ---
Discharge Instructions Diet Discharge Diet: No restrictions Activity Discharge Activity: Return to Normal Activity Weight Bearing Status: Full weight bearing Lifting Restrictions: not more than 10 pounds Follow Up Care Test Results: Test results from this visit will be discussed in further detail at your follow-up appointment, if applicable. Discharge Plan Admission Admit Date/Time: 03/20/21 11:47 Primary Reason for Your Visit: ruptured lumbar disc Attending Provider: Rd Andre Primary Care Provider: George Alanis Consulting Providers: Ferny Orantes ; Montnaa Real Instructions Patient Instructions: ED Chest Pain, Noncardiac Discharge Orders/Prescriptions Prescriptions: New methylprednisolone [Methylpred DP] 4 mg tablets,dose pack 4 mg PO DAILY Qty: 21 RF: 0 gabapentin 100 mg capsule 300 mg PO TID Qty: 60 RF: 0 oxycodone 5 mg tablet 5 - 10 mg PO Q6H PRN (Reason: pain) 7 Days Qty: 20 RF: 0 Continued drospirenone-ethinyl estradiol [Vestura (28)] 3-0.02 mg tablet 1 tab PO DAILY RF: 0 Referrals / Follow Up: George Alanis DO [Primary Care Provider] - Within 1 Month Montana Real DO [STAFF PHYSICIAN] - Within 1 Week Disposition Disposition (needs filled in before D/C Order can be placed): Home, Self Care
--- NOTE | 2021-03-24 08:36 | DS.PCM_ITS ---
Providers Date of Admission: 03/20/21 Date of Discharge: 03/21/21 Primary Care Physician: Dr. George Alanis, DO Consultations 03/19/21 13:52 Consult: Pain Management Routine Consulting Provider: Ferny Orantes Reason for Consult: Acute intractable back pain EMERGENT Consult: No Notified: Yes Date Notified: 03/19/21 Time Notified: 14:27 Method of Notification: Verbal 03/20/21 15:22 Consult: Orthopedics Routine Consulting Provider: [place] Real Reason for Consult: lumbar disc rupture EMERGENT Consult: No Notified: Yes Date Notified: 03/20/21 Time Notified: 15:22 Method of Notification: Verbal Reason For Visit: ACUTE BACK PAIN Diagnosis Discharge Diagnosis (1) Lumbar radiculopathy, right: Status: Acute Code(s): M54.16 - Radiculopathy, lumbar region Plan: 1. Acute L5-S1 ruptured disc #2 right-sided lumbar radiculopathy secondary to #1 Medications at Discharge Home Medications drospirenone-ethinyl estradiol [Vestura (28)] 1 tab PO DAILY 03/19/21 gabapentin 300 mg PO TID #60 cap 03/21/21 methylprednisolone [Methylpred DP] 4 mg PO DAILY #21 tab 03/21/21 oxycodone 5 - 10 mg PO Q6H PRN 7 Days #20 tab 03/21/21 Hospital Course Operations None Procedures - (Bilateral L5-S1 transforaminal epidural steroid injection) Summary of Care Provided Minutes Spent on Discharge: 31 Hospital Course: This 45-year-old white female was seen in the emergency room at [facility] with chief complaint of severe right leg pain. Patient also complained of pain in the right buttocks. Patient's right leg pain radiated from this right buttocks area into her right foot. Patient has been taking Aleve as an outpatient without relief. Patient was given IV narcotics without significant relief of her right leg and right buttocks pain. Patient was admitted to [place] [address], she was placed on gabapentin and IV Decadron as well as IV narcotics. She was seen in consultation by orthopedic surgery, MRI of the lumbar spine was performed which showed a ruptured disc at L5-S1. Patient u nderwent an epidural injection by orthopedic surgery which gave the patient some relief. On 03/21/2021, patient was seen and examined: On examination she appeared in good health and spirits, she does not appear to be in any distress. Vital signs as documented. Skin warm and dry and without overt rashes. Neck without JVD, thyroid appears normal, trachea is midline, neck is supple. Lungs clear, normal air movement was noted. Heart exam notable for regular rhythm, normal sounds and absence of murmurs, rubs or gallops. Abdomen unremarkable and without evidence of organomegaly, masses, or abdominal aortic enlargement, bowel sounds are present in all 4 quadrants, no abdominal tenderness was noted. Extremities nonedematous, no cyanosis was noted, no clubbing was noted. Neuro: Cranial nerves II through XII are grossly intact, no focal motor deficits were noted, sensation to light touch and pinprick is intact, motor exam 5/5 throughout. Psych: Patient is alert and oriented x3, she does not appear anxious or depressed, she does not appear agitated. Patient was discharged home in stable condition on 03/21/2021. Weight / BMI Weight Weight: 74.1 kg Body Mass Index (BMI) 28.0 ABG / Lab / Microbiology Data Result Diagrams: 03/19/21 14:08 03/19/21 14:08 D/C Instructions Discharge Diet: No restrictions Weight Bearing Status: Full weight bearing Meaningful Use Info Meaningful Use Diagnoses (Choose all that apply): None applicable Discharge Plan Admission Admit Date/Time: 03/20/21 11:47 Primary Reason for Your Visit: ruptured lumbar disc Attending Provider: Rd Andre Primary Care Provider: George Alanis Consulting Providers: Ferny Orantes ; [place] Real Instructions Patient Instructions: ED Chest Pain, Noncardiac Discharge Orders/Prescriptions Prescriptions: New methylprednisolone [Methylpred DP] 4 mg tablets,dose pack 4 mg PO DAILY Qty: 21 RF: 0 gabapentin 100 mg capsule 300 mg PO TID Qty: 60 RF: 0 oxycodone 5 mg tablet 5 - 10 mg PO Q6H PRN (Reason: pain) 7 Days Qty: 20 RF: 0 Continued drospirenone-ethinyl estradiol [Vestura (28)] 3-0.02 mg tablet 1 tab PO DAILY RF: 0 Referrals / Follow Up: George Alanis DO [Primary Care Provider] - Within 1 Month Real,[place], DO [STAFF PHYSICIAN] - Within 1 Week Disposition Disposition (needs filled in before D/C Order can be placed): Home, Self Care Charges/Coding Visit Charges Inpatient E&M: 30581 Disch Hosp
== END 2021-03-21 18:45 | disposition home or self-care (01) | DRG 347 ==
LOC: ED 11:16 → MS3 11:33
PROVIDERS: Orthopaedic Surgery; Admitting Provider Internal Medicine; Emergency Provider Emergency Medicine; PCP Family Medicine; Visit Provider Internal Medicine
PROC: 3E0S3BZ Introduction of Anesthetic Agent into Epidural Space, Percutaneous Approach (ICD-10-PCS; principal; 2021-03-21 12:55)
DX: M51.16 Intervertebral disc disorders with radiculopathy, lumbar region (principal); M47.26 Other spondylosis with radiculopathy, lumbar region; M48.061 Spinal stenosis, lumbar region without neurogenic claudication
CPT/HCPCS: 36415; 64483; 72020; 72148; 80053; 85025; 97161; 99285; J7120; A4216; J2405

== ENCOUNTER 2021-04-28 11:12 | Observation (INO) | payer MEDICAID, SELFPAY ==
[2021-03-31 09:25] VITALS: BMI 27.4
--- NOTE | 2021-04-17 12:31 | EKG12_ITS ---
Test Reason : PRE-OP Blood Pressure : / mmHG Vent. Rate : 075 BPM Atrial Rate : 075 BPM P-R Int : 144 ms QRS Dur : 082 ms QT Int : 360 ms P-R-T Axes : 046 029 047 degrees QTc Int : 402 ms Normal sinus rhythm with sinus arrhythmia Normal ECG Confirmed by SUSHIL LANGE, CHRISSY ([id number]), brands editor RAKESH ZURITA ([id number]) on 04/18/2021 7:56:04 AM Referred By: Samuel Brenner Confirmed By:CHRISSY LING MD
[2021-04-17 12:43] LABS: Prothrombin Time (Protime)PT. 12.1 SECONDS (11.7-14.9)
[2021-04-17 12:44] LABS: Partial Thromboplast Time 26.2 Seconds (24.1-36.2)
[2021-04-17 12:54] LABS: Absolute Lymphocyte Count 1.66 X10^3/uL (0.83-4.51); Basophil# 0.05 X10^3/uL; Basophil% 0.8 % (0-1); Eosinophil# 0.21 X10^3/uL; Eosinophils% 3.3 % (0-5); Hematocrit 42.7 % (37-47); Hemoglobin 13.8 g/dL (12.0-15.0); Lymphocyte # 1.66 X10^3/ul (0.83-4.51); Lymphocyte % 26.4 % (19-41); Mean Corp Hgb Conc 32.3 g/dL (32-36); Mean Corpuscular Hgb 29.4 pg (27.0-32.0); Mean Corpuscular Volume 90.9 fL (81-99); Mean Platelet Vol. 9.9 fl (6.2-12.0); Monocyte# 0.37 X10^3/uL; Monocyte% 5.9 % (0-10); NRBC Flagged by Analyzer 0 % (0-5); Neutrophil # 3.97 X10^3/uL (2.7-7.7); Neutrophil % 63.1 % (47-70); Platelet Count 253 K/mm3 (150-450); RBC Distribution Width CV 12.6 % (11.6-14.6); RBC Distribution Width SD 41.7 fl (35.1-43.9); White Blood Count 6.3 K/mm3 (4.4-11.0)
[2021-04-17 13:23] LABS: AST(SGOT) 17 U/L (15-37); Alanine Aminotransfer ALT/SGPT 23 U/L (13-56); Albumin, Serum 3.5 g/dL (3.2-5.0); Alkaline Phosphatase 43 U/L (45-117); Bilirubin, Direct 0.07 mg/dL (0.00-0.30); Globulin 3.9 g/dL (2.2-4.2); Magnesium 1.8 mg/dL (1.6-2.6); Protein, Total 7.4 g/dL (6.4-8.2)
[2021-04-17 13:24] LABS: Anion Gap 8 (5-15); BUN 11 mg/dL (7-18); BUN/Creat Ratio 12.1 RATIO (10-20); Chloride 105 mmol/L (98-107); Creatinine, Serum 0.91 mg/dL (0.55-1.02); EST Glomerular Filtration Rate 71 mL/min (>60); Est Glom Filt Rate - Afr Amer 85 mL/min (>60); Glucose 113 mg/dL (74-106); Potassium 3.4 mmol/L (3.5-5.1); Sodium Level 139 mmol/L (136-145)
[2021-04-17 13:45] LABS: HIV - WCH Non-Reactive (Nonreactive); Hepatitis B Surface Antibody Non-Reactive; Hepatitis C Antibody Non-Reactive (Nonreactive)
[2021-04-18 07:59] LABS: Hepatitis A AB, Total Negative (Negative)
--- NOTE | 2021-04-26 12:01 | PCM.HP.BLA ---
History and Physical Date of Admission: 04/27/21 [facility] [id number] [phone] OFFICE VISITDate of Service: 03/31/21 MR#:[id number]:[id number]: ARELI RODRÍGUEZep #:[id number]:1975 Provider:Dr. Samuel Brenner, DOAge/Sex: 45/F Location:[place]:Signed Intake Vital Signs 03/31/21 09:22 03/31/21 09:25 Height 5 ft 4 in Weight: 160 lb 1 oz BMI 27.4 27.4 Intake Visit Reasons: Lumbar spine Chief Complaint: Lumbar Pain Is patient in pain?: Yes Pain scale (1-10): 3 Allergies prednisone Adverse Reaction (Verified 03/29/21 14:11) NEEDS FOLLOW-UP Medications drospirenone-ethinyl estradiol [Vestura (28)] 1 tab PO DAILY 03/19/21 [History Confirmed 03/31/21] gabapentin 300 mg PO TID #60 cap 03/21/21 [Rx Confirmed 03/31/21] oxycodone 5 - 10 mg PO Q6H PRN 7 Days #20 tab 03/21/21 [Rx Confirmed 03/31/21] PFSH Medical History Arthritis Asthma Back problem Chest pain of uncertain etiology COVID-19 determined by clinical diagnostic criteria Endometriosis GERD (gastroesophageal reflux disease) History of pneumonia History of stress test Mitral valve prolapse Murmur Polycystic ovaries Seasonal allergies Skin cancer skin cancer removal Surgical History History of endometrial ablation History of left knee surgery Status post surgical removal of malignant neoplasm of skin Family History Other Alcoholism Anxiety Arthritis Breast cancer Depression Respiratory disease Social History (Updated 03/31/21 @ 09:28 by Geovanna Gudino) household members: spouse and children Smoking Status: Never smoker alcohol intake: current alcohol intake frequency: holidays/special occasions only substance use type: does not use what type of physical activity do you participate in: none, weight training and other details: Cardio frequency: 3-4 times per week do you feel safe at home: Yes HPI Lumbar spine Chief Complaint: Lumbar Spine Details: Parts of this documentation were recorded by a scribe, this documentation accurately reflects the service provided and the decisions made by me, Dr. Samuel Brenner, 03/31/21 0928. ARELI RODRÍGUEZ is a 45 year old F here today for low back pain that radiates down the right leg with numbness radiating into her 4th and 5th toes. Patient was referred to [facility] for a Lumbar discectomy and fusion but would like a second opinion. Patient has experienced chronic lumbar pain for 10 years after a weightlifting injury from squatting with weights of 100+ lbs. Patient states that she tried field care coordinator after this injury but did not have much relief as the pain continued to come and go. Patient states that she was taken by squad to [facility] ED on 03/19/21 with severe low back pain. Patient states that she was bending to pick something up and heard a pop and had to lay down and could not lower her right leg after the injury. She was hospitalized for several days and had an MRI. She was told that she had a herniated disc a L5-S1. She was given two epidural steroid injections that gave some relief. Patient met with Dr. Real while she was in [facility] and he recommended a Lumbar discectomy and fusions of L5-S1. Patient states that she did not feel comfortable with Dr. Real and would like to see what we would recommend. Patient has tried the following conservative treatments for six weeks or greater: [RICE, OTC NSAIDs, home exercises provided by a provider, corticosteroid injections and oral corticosteroids, narcotic and non-narcotic analgesic medication(s), field care coordinator/dry needling/acupuncture, PT/OT, (splinting, casting, bracing, sling), interventional pain procedures, pain management techniques, and spinal manipulation]. Patient has found no relief and would like to further investigate their s/s. Areli is a most pleasant young lady 45 years old and has a chief complaint of pain in her right buttocks that radiates down the right thigh down the right leg to the outside of the right foot and what seems to be an S1 dermatome. She started having some pain in her buttocks and even into her thigh in October of this year. But it was tolerable at the time. On 19 March she ended up getting much worse and was taken by squad to the emergency room at [facility]. She was hospitalized at the time. An MRI scan was done. She saw Dr. Real who did an epidural steroid injection or perhaps selective nerve root injection. She has gotten some relief from that. But she is afraid that the horrendous pain will come back. She did not feel comfortable with Dr. Real but I assured her that he is a very good surgeon. She stated that she is sure that he is but that he did not talk to her much about her problem. Nonetheless she is here for me to evaluate her. On examination she has positive tension signs and positive straight leg raising on the right she has weakness of the peroneals on the right as compared to the left. Her right Achilles reflex is completely absent as compared to the left. She also has some weakness of the gastrocnemius on the right as compared to the left. She has more trouble standing on her toes on the right and she does the left. She has no long tract signs. Clonus is absent Babinski's are downgoing. I reviewed the MRI scan that demonstrates that she has an extruded fragment at L5-S1 on the right side consistent with her obvious S1 radiculopathy on the right. Because of the severity of the pain and the fact that she has significant neurological deficits surgery is indicated to decompress the S1 nerve root. She does not have a lot of back pain in the center of her back it is all right-sided so I don't think that she needs a fusion at least not at this time. She needs simply to decompress the S1 nerve root. We will schedule her for surgery in the relatively near future. I will see her again 1 week before surgery.
[2021-04-27] VITALS (15 sets, daily range): BP systolic 110–132; BP diastolic 68–91; PULSE 64–96; RESP 16–18; TEMP 36.1–37.1; O2SAT 16–100; BMI 27.5; BMI 27.1
[2021-04-27 10:33] LABS: Internal QC Validated? YES +Cl - CLEAR BKGD; Pregnancy, Urine Negative Negative
[2021-04-27] MEDS: Acetaminophen 500 MG Tablet 1000 MG PO (10:56)
[2021-04-27 11:15] LABS: Bedside Glucose 80 mg/dL (70-110)
[2021-04-27] MEDS: Lactated Ringers 1,000 ML 100 ML IV ×3 (12:00→23:35)
[2021-04-27] MEDS: Cefazolin 2 GM in 0.9% Normal Saline 100 ML IV (12:03)
--- NOTE | 2021-04-27 12:10 | BON_PTH ---
PATIENT: EMMANUELLE RODRÍGUEZ LOC: MS3 U#:[id number] AGE/SX: 45/F ROOM: KS321 RE04/28/[address]: Dr. Charles Shah MD : 1975 BED: 1 DIS: 04/28/2021 SPEC #: [id number] RECD: 04/27/21 14:29 STATUS: CESAR HEBERT #: [id number] BERE: 04/27/21 12:[address]: Samuel Brenner DEPT: SURGICAL PATHOLOGY RECD BY: Edda Mchugh ENTERED: 04/28/21 09:43 SP TYPE: Bone OTHR DR: Dr. George Alanis, DO Dr. Marry Lund, DO Dr. Samuel Brenner, DO Dr. Charles Shah MD Tissues: Vertebra, NOS Procedures: Decalcification bone/plaque Surgery Specimen Level IV Comments: @ Ordering doctor for DEC edited from to @ by PEG at 04/28/21 1453 @ Ordering doctor for SUIV edited from to @ by RGOEMANUEL at 04/28/21 1453 @ Submitting doctor edited from to @ by RGOOD at 04/28/21 1453 HEADER OPERATION: ERAS, lumbar laminectomy L5-S1 PRE-OP DIAGNOSIS: Extruded fragment at L5-S1 on right side consistent with S1 radiculopathy TISSUE SUBMITTED: Bone and ligament L5-S1 MICROSCOPIC DIAGNOSIS Bone and ligaments, L5-S1, laminectomy: Degenerative and reparative change. WADE;wade 05/02/21 MICROSCOPIC DESCRIPTION Slides are reviewed. GROSS DESCRIPTION Received in fixative is one container labeled with the patient's name and designated bone plus ligament L5-S1. The specimen consists of multiple irregular fragments of indurated, pink-carbajal soft tissue and bone that in aggregate measure 3.3 x 2.2 x 0.3 cm. The specimen is totally submitted in one cassette after decalcification. / AM:jose 04/28/2021 TC:3 CPT: 82067,77632
--- NOTE | 2021-04-27 12:42 | RAD_ITS ---
STUDY: X-RAY - LUMBAR SPINE REASON FOR EXAM: Female, 45 years old. Low back pain, intraoperative laminectomy TECHNIQUE: Single lateral intraoperative view(s) of the lumbar spine were obtained. COMPARISON: None FINDINGS: Single limited intraoperative lateral view of the lumbar spine shows the surgical instrument immediately posterior to the L5/S1 disc space. A clamp is attached to the spinous process at L5. RAD/Spine 1 View Any Level IMPRESSION: Marker placed posterior to the L5/S1 disc space Electronically Signed: German Montoya MD at 13:38 EDT , Service support ,
[2021-04-27] MEDS: THROMBIN (RECOMBINANT) 20,000 UNIT VIAL 20000 UNIT TOPICAL (12:57)
--- NOTE | 2021-04-27 13:59 | PCM.OPRPT ---
Report of Operation Date of Procedure: 04/27/21 Description of Surgical Findings:: Preoperative diagnosis: Large herniated disc L5-S1 with severe right L5 radiculopathy Postoperative diagnosis: The same Procedure: Lumbar laminectomy discectomy L5-S1 on the right CPT code 15810 Surgeon: Dr. Brenner administration assistant: Dimas GUERRERO Anesthesia: General endotracheal anesthesia administered by [facility] Estimated blood loss: Less than 30 cc Drains: Medium Hemovac Complications: None Procedure: Patient was taken to the OR where she was placed under general endotracheal anesthesia. A Thapa catheter was inserted. Neuro monitoring inserted there leads. She was then placed in the prone position on the Mazin frame. Neuro monitoring finished the posterior leads at that time. Care was taken to protect her bony prominences her breasts her brachial plexus her ulnar nerves of both elbows her neck and facial features. The back was then prepped and draped in standard fashion. A longitudinal incision centered over L5-S1. Subcutaneous tissues were incised the length of the skin incision. This was done using cautery. I did open the lumbar fascia to the right of the spinous processes and elevated the paravertebral muscles off the spinous process and lamina 5 and the lamina of S1. An intraoperative x-ray was taken with a marker in place to confirm that that was indeed the proper level. Lois retractor was then put in place. I removed all the fatty tissue off of the ligamentum flavum in between the 2 lamina. I used a Leksell rongeur to thin down the L5 lamina. I then used angled curettes to release ligamentum flavum off the underside of the lamina of S1. Also used a curette to release it off the top of the S1 lamina. The laminectomy was then carried out with 45 degree Kerrison rongeurs. I then placed a hockey-stick under the medial portion of the ligamentum flavum cut it longitudinally over the hockey and then used curettes to release it completely off of the S1 lamina. In this fashion I was able to use an old bur to remove most of the ligamentum flavum and one failed swoop. The remaining was easily removed with 45 degree Kerrison rongeurs. In this fashion we were able to identify the dura and the S1 nerve root and the extremely large disc underneath it. Using a nerve root retractor we retracted it medially along with the dura exposing the large disc cut the posterior longitudinal ligament which was already very thinned and exposed several large free fragments of disc. These were removed with pituitary rongeurs. We could tell where the bottom of the disc had torn to release the nucleus pulposus. There was no need to violate the rest of the annulus and it was left alone. Has a likelihood of more coming out was remote. Noted we thoroughly irrigated over 10 to 15 minutes in the course of the case. Bleeders were controlled with bipolar cautery and thrombin-soaked Gelfoam. Once we had good hemostasis we then placed a amniotic membrane over the dura and nerve root to prevent adhesions. I then placed Gelfoam over that. A medium Hemovac drain was inserted. We then closed the lumbar fascia using [id number] suture with #1 Vicryl. We closed the subcutaneous tissues with 2-0 Vicryl in interrupted fashion and skin was approximated using skin clips. Sterile dressings were applied. The patient was then recovered in the OR moved to her hospital bed and taken to recovery in satisfactory condition. This is the end of operative summary on Areli Pagan. This is Dr. Brenner dictating.
--- NOTE | 2021-04-27 14:04 | PN.HOSP_ITS ---
Subjective Subjective Areli Pagan is a 45-year-old white female presented to [facility] on 04/27/2021 for an elective S1 nerve root decompression secondary to chronic pain and neurological deficits. MRI showed L5-S1 extruded disc fragment on the right side that is likely contributing to her S1 radiculopathy. Her symptoms started a couple months ago. Symptoms started with buttock pain that eventually progressed into her thigh but by February of this past year she was taken to the hospital and hospitalized for her pain down her leg. An epidural steroid injection was done and she got some relief from that but was significantly concerned her pain would come back. Her preoperative exam showed a straight leg raise that was positive weakness of the peroneals and gastrocnemius on the right as well as an absent Achilles tendon reflex. She has undergone multiple conservative measures for management without significant relief. Her past medical history is significant for asthma, endometriosis, GERD, MVP, polycystic ovarian syndrome and skin cancer. Patient is currently resting comfortably in her bed in the immediate postop period. She is having some low back discomfort although she states is different than her preoperative pain. Objective Data Objective Data Vital Signs: Vital Signs Temp Pulse Resp BP Pulse Ox 97 F L 70 16 130/91 H 100 04/27/21 10:48 04/27/21 10:48 04/27/21 10:48 04/27/21 10:48 04/27/21 10:48 Oxygen Delivery Method Room Air Weight: 72.7 kg Body Mass Index (BMI) 27.5 Lab / Micro Data Result Diagrams: 04/17/21 12:06 04/17/21 12:06 Labs: Laboratory Results - last 24 hr 04/27/21 10:15: Urine Test Negative 04/27/21 10:39: POC Glucose 80 Micro: Microbiology 04/26/21 08:45 Interface Orders SARS-CoV-2 Antigen (Rapid) - Final 04/17/21 12:06 Swab (Method) Nasal Screen MRSA/MSSA - Final Radiography Diagnostic Testing: Radiology Impression Spine X-Ray 04/27/21 12:42 IMPRESSION: Marker placed posterior to the L5/S1 disc space Electronically Signed: German Montoya MD at 13:38 EDT , Service support , Physical Exam Const alert, oriented x3, no apparent distress and average body habitus Constitutional Narrative: Middle-aged white female lying in bed, appears comfortable at this time, nontoxic Exam Limitations: no limitations HEENT head/scalp atraumatic and moist oral mucous membranes Head and Scalp: normocephalic Resp normal respiratory effort, no retractions, no use of accessory muscles and clear to auscultation bilaterally Auscultation: Negative for crackles, rales, rhonchi or wheezes Cardio regular rate, regular rhythm, S1 normal heart sound, S2 normal heart sound, no murmurs, no rub, no gallops, no clicks and no JVD GI normal to inspection, nondistended, normoactive bowel sounds, soft to palpation, non-tender and non-distended; Negative for hepatosplenomegaly Extremity no clubbing, cyanosis or edema Peripheral Pulses: Yes pulses 2+ throughout Neuro oriented x3, CN's II-XII intact bilaterally and no focal motor deficits Sensorium / Orientation: awake and alert Speech: speech normal Psych affect normal Assessment & Plan Assessment/Plan (1) Lumbar radiculopathy, right: PLAN: Right S1 lumbar radiculopathy -Postop day 0 decompression -Pain management per primary service -Continue bowel regimen -Therapy services Asthma -As needed albuterol DVT prophylaxis -SCDs -Transition to chemical prophylaxis if patient is to remain in the hospital more than 24 hours and okay with orthopedic surgery Charges/Coding Visit Charges Inpatient E&M: 19400 Subs Hosp L2
[2021-04-27] MEDS: Morphine 2 MG/ML Syringe IV ×2 (18:13→21:28)
[2021-04-27] MEDS: Ensure Surgery 237 ML LIQUID PO (18:26)
[2021-04-27] MEDS: Gabapentin 300 MG Capsule PO (18:28)
[2021-04-27] MEDS: Cefazolin 1 GM/50 ML BAG IV (19:50)
[2021-04-27] MEDS: oxyCODONE 5 MG Tablet PO ×2 (19:54→23:39)
[2021-04-27] MEDS: diazePAM 5 MG Tablet PO (19:54)
[2021-04-27] MEDS: Senna/Docusate Sodium 1 Tablet 2 TABLET PO (21:27)
[2021-04-27] MEDS: Famotidine 20 MG Tablet PO (21:27)
[2021-04-27] MEDS: Acetaminophen 325 MG Tablet 650 MG PO (23:39)
[2021-04-28 01:22] VITALS: BP 98/83; PULSE 92; RESP 18; TEMP 37; O2SAT 96
[2021-04-28] MEDS: Cefazolin 1 GM/50 ML BAG IV (04:31)
[2021-04-28] MEDS: Acetaminophen 325 MG Tablet 650 MG PO ×2 (04:34→12:09)
[2021-04-28] MEDS: oxyCODONE 5 MG Tablet PO ×2 (04:34→12:08)
[2021-04-28] MEDS: diazePAM 5 MG Tablet PO ×2 (04:35→12:14)
[2021-04-28 04:42] VITALS: BP 115/75; PULSE 92; RESP 16; TEMP 36.6; O2SAT 96
[2021-04-28 07:40] VITALS: BP 126/85; PULSE 80; RESP 16; TEMP 36.7; O2SAT 97
[2021-04-28] MEDS: Morphine 2 MG/ML Syringe IV (07:50)
[2021-04-28] MEDS: Gabapentin 300 MG Capsule PO ×2 (07:51→11:04)
[2021-04-28] MEDS: Ensure Surgery 237 ML LIQUID PO ×2 (07:51→11:05)
[2021-04-28] MEDS: Lactated Ringers 1,000 ML 100 ML IV (10:01)
--- NOTE | 2021-04-28 10:48 | CASEMGMT ---
SERGIO SANCHES Assessment: Face to Face with pt for initial transition planning/care coordination assessment. RN VERÓNICA introduced self and role at [facility], pt voices understanding and consents to assessment. Pt is A/O x4 and answers all questions appropriately at this time. Pt sitting up in chair with at bedside. Pt states she just walked 3 laps around the unit. Care providers, pharmacy, and demographics verified/updated. Admitting Dx: lumbar laminectomy L5-S1 PCP: Khadijah Alanis Specialists: Vidhi Nolasco, cardio; Oscar, [employer] BUSINESS SEGMENT LEADER; Jordin, spine surgeon Preferred Pharmacy: [email or web address] Insurance: [employer] Prescription Benefit: yes LW/HPOA: Pt denies having a LW/DPOA nor the need for info regarding. LNOK: Gino Pagan, Living Arrangements: Pt lives in a single story ranch with two steps to enter with and two adult sons. Pt is I in ADL's and denies concerns at home. She states she has been using a chair in the shower. Transportation: Pt drives self and denies concerns with transportation. able to transport to medical appts. DME/HHC/SNF: Pt has a hand held shower,no hx of HHC or SNF. Pt states no concerns with going home at time of dc. Pt states no further concerns/needs. CM to follow. Advised pt to ask CM if any further question/concerns/needs arise, voices understanding. Pt Goal: Home Plan: Home with family support.
[2021-04-28] MEDS: Senna/Docusate Sodium 1 Tablet 2 TABLET PO (11:04)
[2021-04-28] MEDS: Famotidine 20 MG Tablet PO (11:04)
[2021-04-28 13:40] VITALS: BP 106/70; PULSE 81; RESP 14; TEMP 36.7; O2SAT 95
[2021-04-28 15:00] VITALS: PULSE 80; RESP 14; O2SAT 95
--- NOTE | 2021-04-28 15:20 | PCM.DC ---
Discharge Instructions Follow Up Care Test Results: Test results from this visit will be discussed in further detail at your follow-up appointment, if applicable. Discharge Plan Admission Admit Date/Time: 04/28/21 11:12 Attending Provider: Charles Shah Primary Care Provider: George Alnais Consulting Providers: Marry Lund Instructions Patient Instructions: ED Chest Pain, Noncardiac Discharge Orders/Prescriptions Prescriptions: No Action naproxen sodium [Aleve] 220 mg tablet 220 mg PO QHS PRN (Reason: Pain) RF: 0 drospirenone-ethinyl estradiol [Vestura (28)] 3-0.02 mg tablet 1 tab PO DAILY RF: 0 ibuprofen 200 mg Tablet 400 mg PO Q6H PRN (Reason: Pain) RF: 0 gabapentin 100 mg capsule 300 mg PO TID RF: 0 albuterol sulfate 90 mcg/actuation HFA aerosol inhaler 1 puff INHALATION 4X/DAY PRN PRN (Reason: Wheezing) RF: 0 Referrals / Follow Up: George Alanis DO [Primary Care Provider] - Samuel Brenner DO [STAFF PHYSICIAN] - Disposition Disposition (needs filled in before D/C Order can be placed): Home, Self Care
--- NOTE | 2021-04-28 15:23 | PCM.DC ---
Discharge Instructions Follow Up Care Test Results: Test results from this visit will be discussed in further detail at your follow-up appointment, if applicable. Discharge Plan Admission Admit Date/Time: 04/28/21 11:12 Attending Provider: Charles Shah Primary Care Provider: Geroge Alanis Consulting Providers: Marry Lund Instructions Patient Instructions: ED Chest Pain, Noncardiac Discharge Orders/Prescriptions Prescriptions: No Action naproxen sodium [Aleve] 220 mg tablet 220 mg PO QHS PRN (Reason: Pain) RF: 0 drospirenone-ethinyl estradiol [Vestura (28)] 3-0.02 mg tablet 1 tab PO DAILY RF: 0 ibuprofen 200 mg Tablet 400 mg PO Q6H PRN (Reason: Pain) RF: 0 gabapentin 100 mg capsule 300 mg PO TID RF: 0 albuterol sulfate 90 mcg/actuation HFA aerosol inhaler 1 puff INHALATION 4X/DAY PRN PRN (Reason: Wheezing) RF: 0 hydrocodone-acetaminophen 7.5-325 mg tablet 1 tab PO Q6H PRN (Reason: pain) 7 Days Qty: 40 RF: 0 Referrals / Follow Up: George Alanis DO [Primary Care Provider] - Samuel Brenner DO [STAFF PHYSICIAN] - Disposition Disposition (needs filled in before D/C Order can be placed): Home, Self Care
--- NOTE | 2021-04-28 15:26 | DS.PCM_ITS ---
Providers Date of Admission: 04/28/21 Primary Care Physician: Dr. George Alanis, DO Consultations 04/27/21 14:11 Consult: Hospitalist Routine Consulting Provider: Marry Lund Reason for Consult: Medical Management EMERGENT Consult: No MD Notified: Yes Date Notified: 04/27/21 Time Notified: 14:11 Method of Notification: Verbal Reason For Visit: LUMBAR LAMINECTOMY RT L5-S1 Diagnosis Discharge Diagnosis (1) Lumbar radiculopathy, right: Status: Acute Code(s): M54.16 - Radiculopathy, lumbar region Medications at Discharge Home Medications drospirenone-ethinyl estradiol [Vestura (28)] 1 tab PO DAILY 03/19/21 albuterol sulfate 1 puff INHALATION 4X/DAY PRN PRN 04/14/21 gabapentin 300 mg PO TID 04/14/21 ibuprofen 400 mg PO Q6H PRN 04/14/21 naproxen sodium 220 mg tablet 220 mg PO QHS PRN tab 04/21/21 hydrocodone 7.5 mg-acetaminophen 325 mg tablet 1 tab PO Q6H PRN 7 Days #40 tab 04/28/21 Hospital Course Summary of Care Provided Hospital Course: This is discharge summary on Areli Pagan. This patient was admitted on April 27 and is being discharged on April 28, 2021. Admitting diagnosis was herniated disc L5-S1 with severe right S1 radiculopathy. Disch arge diagnoses are the same. Procedures while in the hospital the date of admission she underwent lumbar laminectomy discectomy L5-S1 on the right side. Tolerated the procedure well. At discharge the dressing was changed and the drain was removed. Her incision is healing well. She was given post laminectomy protocol regarding her activities. She was given oxycodone for pain that is waiting for her at the pharmacy. Already has an appointment at my office for follow-up and removal of her skin clips. There is the end of discharge summary on Areli Pagan. This is Dr. Brenner dictating. Weight / BMI Weight Weight: 160 lb 4.417 oz Body Mass Index (BMI) 27.1 ABG / Lab / Microbiology Data Result Diagrams: 04/17/21 12:06 04/17/21 12:06 Microbiology: Microbiology 04/26/21 08:45 Interface Orders SARS-CoV-2 Antigen (Rapid) - Final 04/17/21 12:06 Swab (Method) Nasal Screen MRSA/MSSA - Final Meaningful Use Info Meaningful Use Diagnoses (Choose all that apply): None applicable Discharge Plan Admission Admit Date/Time: 04/28/21 11:12 Attending Provider: Charles Shah Primary Care Provider: George Alanis Consulting Providers: Marry Lund Instructions Patient Instructions: ED Chest Pain, Noncardiac Discharge Orders/Prescriptions Prescriptions: No Action naproxen sodium [Aleve] 220 mg tablet 220 mg PO QHS PRN (Reason: Pain) RF: 0 drospirenone-ethinyl estradiol [Vestura (28)] 3-0.02 mg tablet 1 tab PO DAILY RF: 0 ibuprofen 200 mg Tablet 400 mg PO Q6H PRN (Reason: Pain) RF: 0 gabapentin 100 mg capsule 300 mg PO TID RF: 0 albuterol sulfate 90 mcg/actuation HFA aerosol inhaler 1 puff INHALATION 4X/DAY PRN PRN (Reason: Wheezing) RF: 0 hydrocodone-acetaminophen 7.5-325 mg tablet 1 tab PO Q6H PRN (Reason: pain) 7 Days Qty: 40 RF: 0 Referrals / Follow Up: George Alanis DO [Primary Care Provider] - Samuel Brenner DO [STAFF PHYSICIAN] - Disposition Disposition (needs filled in before D/C Order can be placed): Home, Self Care
== END 2021-04-28 16:45 | disposition home or self-care (01) ==
LOC: SDC 05-02 11:10
PROVIDERS: Anesthesiology; Admitting Provider Orthopaedic Surgery; PCP Family Medicine; Referring Provider Orthopaedic Surgery; Visit Provider Family Medicine
PROC: (CPT 63030; principal; 2021-04-27 11:40)
DX: M51.17 Intervertebral disc disorders with radiculopathy, lumbosacral region (principal); J45.909 Unspecified asthma, uncomplicated; K21.9 Gastro-esophageal reflux disease without esophagitis; Z86.16 Personal history of COVID-19; Z79.899 Other long term (current) drug therapy
CPT/HCPCS: 00670; 63030; 36415; 72020; 80048; 80076; 81025; 82962; 83735; 85025; 85610; 85730; 86703; 86706; 86708; 86803; 87081; 87426; 88305; 88311; 93005; 96361; 96365; 96366; 96375; 96376; 97162; 99218; C9803; J7120; A4216; G0378; J2405

== ENCOUNTER 2021-09-06 17:30 | Outpatient (RCR) | payer MEDICAID, SELFPAY ==
--- NOTE | 2021-07-26 19:23 | HP.PTEVAL_ITS ---
Patient's Visit Information EMMANUELLE RODRÍGUEZ is a 45 year old F referred to Physical Therapy by Dr. Samuel Brenner DO with a diagnosis of Lumbar Laminectomy disectomy DOS 04-27-21. Date of Evaluation: 07/26/21 Physical Therapist: DESIREE Wood - Visit Plan Frequency: 2x /Week Duration: 6 Weeks Plan: 2X/ week for 6 weeks for NEUTRAL spine core stability starting with mat exercises and progressing to sittin and standing with PT and Ab brace as a focus. Work on B HS stretches and B LE strength focus on R ankle, R HS and L hip abd with HEP and pictures. - Subjective Pt had bended FW to get something off her floor and had pain in her butt and pain down the R leg on March 18. Prior to that she was stiff in the mornings. She still has numbing in her R calf and pinky toe. She does not have full PF on the R LE. She is scared to touch her toes. Dr said not to be lifting above her head. She did go to the weight room a few weeks ago. She had some good days and bad days with pain. Pt tweaked her back yesterday and was not going to come today but she is nervous that she is doing something. She had a duster and she bent FW and felt it slip in her back. She is also hurting because it is raining outside. She does not stop and trying to get [place] stuff off. She is burning in her back and that has been off and on since surgery along with achy. She has been doing some twisting and it has not hurt. Pt is to report back to in 6 weeks. Stairs normally don't bother her but after and hour of moving around the house she has to sit down. - Pain back pain Pain Intensity (Out of 10): 3 R leg pain Pain Intensity (Out of 10): 0 - Objective Gait: Pt walks with a normal gait pattern with decrease trunk rotation. LE MMT: R hip flex 4-/5 and L hip flex 4/5, R hip abd 4/5 and L 4-/5, R knee flex 4-/5 and L knee flex 4/5, R knee ext 4/5 and l knee ext 4/5, R DF 3+/5 and L 4/5 and R PF 3+/5 and L 4+/5, B hip ext 3+/5. Trunk flex 25%, Ext 25%, SB B 50%. Rotation was not tested. Tight B HS but the R is worse than the L. Posture:Pt sits with good upright posture during treatment sessions. Pt is very weak in her core and struggles to hold a PT with leg motions such as simple supine hip march - Balance/Special Test Scores Oswestry Low Back Score: 12 - Goals Goal 1:: I HEP Goal Time Frame: 6-8 Weeks Goal 2:: Increase R LE strength to R HS 4/5 and be able to do Single R leg heel and toe raises 3 X 10 Goal Time Frame: 6-8 Weeks Goal 3:: Increase core stability to be able to complete ADL's without any pain and shifting feeling in her back. Goal Time Frame: 6-8 Weeks - Rehabilitation Potential Rehabilitation Potential: Good - Anticipated Interventions Patient/Client Instruction: Educate patient on: Plan of Care For the Purpose of:: To decrease pain, To improve nutrient delivery to tissue, To improve muscle performance and motor function, To improve ability to perform ADL's, To increase tolerance to activity/condition/position, To improve performance and independence with ADL's, To improve ability of physical actions for home/community/work/leisure, To improve gait and locomotor functions, To improve health of tissue, To decrease soft tissue restriction, To increase flexi bility/ROM Therapeutic Exercise to Include: Strength training, Postural training, Neuromotor development, Active ROM, Dynamic Lumbar Stabilization For the Purpose of:: To decrease pain, To increase ROM, To improve nutrient delivery to tissue, To improve muscle performance and motor function, To improve ability to perform ADL's, To increase tolerance to activity/condition/position, To improve performance and independence with ADL's, To decrease level of supervision to perform tasks, To improve ability of physical actions for home/community/work/leisure, To improve health of tissue, To decrease soft tissue restriction, To increase flexibility/ROM Thank you for the opportunity to evaluate your patient. For Medicare and Medicare HMO plans, please review the plan of care and approve it. It will need to be FAXED BACK to us at [phone] for Medicare purposes. For Medicare only, by signing this I certify the plan of care. Please let me know if there are questions or concerns regarding this plan of care. Physician Signature: Date:
--- NOTE | 2021-09-06 17:57 | HP.PTDCSUM ---
It has been my pleasure to treat EMMANUELLE RODRÍGUEZ referred by Dr. Samuel Brenner DO, with the diagnosis of Lumbar Laminectomy disectomy DOS 04-27-21 for a total of 9 visit(s). Discharge Date: 09/06/21 Please see the following information for a summary of their discharge status. Subjective: He pain is zero. The cold has not been bothering her. She saw Dr on Saturday and he released her. She has moved a little bit of furniture but is careful with it. No leg pain but some numbess but feels like it is coming. Pt feels that she knows how to stretch and workout. back pain Pain Intensity (Out of 10): 2 R leg pain Pain Intensity (Out of 10): 0 % Improvement: 100 Objective/Function: LE MMT: (hip ext still weak 3-/5), hip flex B 4+/5, Hip ABD 4+/5 B, Knee flex and knee ext B 4+/5. Goal 1:: I HEP Goal Progress: Goal Met Goal 2:: Increase R LE strength to R HS 4/5 and be able to do Single R leg heel and toe raises 3 X 10 Goal Progress: Progressing Goal 3:: Increase core stability to be able to complete ADL's without any pain and shifting feeling in her back. Goal Progress: Goal Met Plan: DC PT to HEP Discharge Comments: DC PT If there are questions or concerns regarding this patient's physical therapy, please feel free to call me at [phone]. Thank you for the referral of this patient. Sincerely, Tomeka Simms, MPT Balance/Gait/Functional tests - Balance/Special Test Scores Oswestry Low Back Score: 4
== END 2021-09-06 19:00 | disposition home or self-care (01) ==
LOC: PT 17:30
PROVIDERS: PCP Family Medicine; Referring Provider Orthopaedic Surgery; Visit Provider Orthopaedic Surgery
DX: Z47.89 Encounter for other orthopedic aftercare (principal); M96.1 Postlaminectomy syndrome, not elsewhere classified
CPT/HCPCS: 97110; 97161; 97530

== ENCOUNTER 2021-11-17 09:34 | Outpatient (CLI) | payer MEDICAID, SELFPAY ==
[2021-11-17 12:08] LABS: Absolute Neutrophil Count 4.8 X10^3/uL (2.0-7.7); Basophil# 0.06 X10^3/uL; Basophil% 0.8 % (0-1); Eosinophil# 0.35 X10^3/uL; Eosinophils% 4.6 % (0-5); Hemoglobin 14.8 g/dL (12.0-15.0); Lymphocyte % 22.5 % (19-41); Mean Corp Hgb Conc 32.9 g/dL (32-36); Mean Corpuscular Hgb 29.7 pg (27.0-32.0); Mean Corpuscular Volume 90.4 fL (81-99); Mean Platelet Vol. 10.3 fl (6.2-12.0); Monocyte# 0.61 X10^3/uL; Monocyte% 8.1 % (0-10); NRBC Flagged by Analyzer 0 % (0-5); Neutrophil # 4.81 X10^3/uL (2.7-7.7); Neutrophil % 63.6 % (47-70); Platelet Count 235 K/mm3 (150-450); RBC Distribution Width CV 12.6 % (11.6-14.6); RBC Distribution Width SD 41.5 fl (35.1-43.9); Red Blood Count 4.98 M/mm3 (4.2-5.4); White Blood Count 7.6 K/mm3 (4.4-11.0)
[2021-11-17 12:14] LABS: Internal QC Validated? YES +Cl - CLEAR BKGD; Monotest Negative (Negative)
[2021-11-17 12:23] LABS: Vitamin D,25 Hydroxy 25.4 ng/mL
[2021-11-17 12:37] LABS: AST(SGOT) 15 U/L (15-37); Alanine Aminotransfer ALT/SGPT 29 U/L (13-56); Albumin, Serum 3.8 g/dL (3.2-5.0); Alkaline Phosphatase 78 U/L (45-117); Anion Gap 6 (5-15); BUN 8 mg/dL (7-18); BUN/Creat Ratio 10.5 RATIO (10-20); Calcium,Total 8.9 mg/dL (8.5-10.1); Chloride 101 mmol/L (98-107); Cholesterol 182 mg/dL (200); Creatinine, Serum 0.76 mg/dL (0.55-1.02); EST Glomerular Filtration Rate 86 mL/min (>60); Est Glom Filt Rate - Afr Amer 104 mL/min (>60); Glucose 93 mg/dL (74-106); High Density Lipoprotein 73 mg/dL; Potassium 3.6 mmol/L (3.5-5.1); Protein, Total 7.8 g/dL (6.4-8.2); Sodium Level 136 mmol/L (136-145); Thyroid Stim Hormone (TSH) 3.24 uIU/mL (0.358-3.74); Triglycerides 140 mg/dL; Very Low Density Lipoprotein 28 mg/dL (5-40)
== END 2021-11-17 23:59 | disposition home or self-care (01) ==
LOC: BIMLAB 09:35
PROVIDERS: PCP Family Medicine; Referring Provider Physician Assistant; Visit Provider Physician Assistant
DX: Z00.00 Encounter for general adult medical examination without abnormal findings (principal); J02.9 Acute pharyngitis, unspecified; J98.8 Other specified respiratory disorders; E55.9 Vitamin D deficiency, unspecified; Z13.220 Encounter for screening for lipoid disorders; Z13.29 Encounter for screening for other suspected endocrine disorder
CPT/HCPCS: 36415; 80053; 80061; 82306; 84443; 85025; 86308; 87070; 87077

== ENCOUNTER → 2022-06-19 | Outpatient (CLI) | payer BC, SELFPAY | END | disposition home or self-care (01) | LOC: LABSPEC 11:29 | PROVIDERS: PCP Family Medicine; Visit Provider Physician Assistant | DX: J02.9 Acute pharyngitis, unspecified (principal) | CPT/HCPCS: 87070; 87077 ==

== ENCOUNTER → 2022-08-29 | Outpatient (CLI) | payer BC, SELFPAY ==
--- NOTE | 2022-08-29 10:41 | BI_ITS ---
MAMMOGRAPHY - BILATERAL SCREENING REASON FOR EXAM: Female, 46 years old. Routine annual screening examination. PERTINENT HISTORY: Aunt with breast cancer. TECHNIQUE: Digital bilateral breast varsha (3D mammographic acquisition) in the CC and MLO projections. 2-D mediolateral oblique (MLO) and craniocaudad (CC) views of both breasts were obtained. CAD: Full Field Digital Mammography with Computer Added Detection was performed. COMPARISON: Comparison is made with prior outside examination dated 08/14/2021. FINDINGS: Breast Composition: The breasts are extremely dense, which lowers the sensitivity of mammography. There are no dominant masses or suspicious calcifications. No other significant abnormalities are identified. There has been no significant change since the prior study. BI/SCRN MAMM (CAD)W/VARSHA BILAT IMPRESSION: Stable bilateral screening mammogram. Yearly follow-up mammogram recommended. (A) ASSESSMENT CATEGORY: BIRADS Category 1: Negative. A letter regarding these results will be sent to the patient by the facility within 30 days. Approximately 10% of breast cancers are not detected by mammography. A normal mammogram should not delay biopsy of a clinically suspicious abnormality. [id number] Electronically Signed: Ivan Figueroa MD at 9:06 EST ,
== END | disposition home or self-care (01) ==
LOC: OPBI 10:40
PROVIDERS: PCP Family Medicine; Visit Provider Physician Assistant
DX: Z12.31 Encounter for screening mammogram for malignant neoplasm of breast (principal)
CPT/HCPCS: 77063; 77067

== ENCOUNTER → 2022-11-08 | Outpatient (CLI) | payer BC, SELFPAY ==
[2022-11-08 12:37] LABS: Estradiol 28.1 pg/mL; Follicle Stimulating Hormone 54.5 mIU/mL; T4 Free Direct 0.94 ng/dL (0.76-1.46); Thyroid Stim Hormone (TSH) 1.77 uIU/mL (0.358-3.74)
== END | disposition home or self-care (01) ==
LOC: PAVLAB 11:25
PROVIDERS: PCP Family Medicine; Referring Provider Obstetrics & Gynecology; Visit Provider Obstetrics & Gynecology
DX: N95.1 Menopausal and female climacteric states (principal)
CPT/HCPCS: 36415; 82670; 83001; 84439; 84443

== ENCOUNTER → 2022-11-20 | Outpatient (CLI) | payer BC, SELFPAY ==
--- NOTE | 2022-11-20 11:25 | US_ITS ---
STUDY: ULTRASOUND OF THE FEMALE PELVIS - COMPLETE REASON FOR EXAM: Female, 47 years old. Menopausal symptoms LMP: 11/06/2022 TECHNIQUE: Transabdominal and Transvaginal TECHNICAL QUALITY: Adequate. COMPARISON: None. FINDINGS: The uterus is anteverted and is in a midline position. The uterus measures 9.6 x 6.6 x 7.0 cm. Normal uterine cervix. The endometrium measures 2 mm in thickness, and is hyperechoic. There is no demonstrated endometrial mass. There are multiple hypoechoic circumscribed myometrial lesions consistent with fibroids with the right demonstrating a pedunculated appearance measuring 2.4 x 3.0 x 2.1 cm. There is a central myometrial fibroid measuring 2.6 x 2.3 x 2.3 cm. Additional right myometrial fibroid measures 1.1 x 1.6 x 0.8 cm. I.U.D. - The patient does not have an I.U.D. The right ovary is visualized. The right ovary measures 2.6 x 1.2 x 1.3 cm. There is no right ovarian cyst or ovarian mass. There is no visualized right adnexal mass or complex lesion. There is normal arterial and normal venous vascularity. The left ovary is visualized. The left ovary measures 5.9 x 4.8 x 3.9 cm. There is demonstrated prominent simple appearing cyst measuring 4.9 x 3.9 x 2.7 cm. There is no visualized left adnexal mass or complex lesion. There is normal arterial and normal venous vascularity. There is no fluid in the cul-de-sac. The volume of the bladder was 648 ml. Polycystic ovary disease: No. US/Pelvic (Non ) IMPRESSION: 1. Multi fibroid uterus as above. 2. Hypoechoic cyst of the left ovary measuring 4.9 x 3.9 x 2.7 cm mildly complex appearance. Recommend follow-up imaging in 4-6 weeks to document stability versus resolution. Differential includes endometrioma and hemorrhagic ovarian cyst. If no resolution recommend MRI imaging of pelvis with contrast for definitive characterization. Electronically Signed: Christopher Retana DO at 18:24 EDT ,
== END | disposition home or self-care (01) ==
LOC: US 11:24
PROVIDERS: PCP Family Medicine; Visit Provider Obstetrics & Gynecology
DX: N95.1 Menopausal and female climacteric states (principal)
CPT/HCPCS: 76830; 76856

== ENCOUNTER → 2023-07-10 | Outpatient (CLI) | payer OTHER, SELFPAY ==
[2023-07-10 12:57] LABS: ALB/GLOB Ratio 1.1 RATIO (0.9-2.4); AST(SGOT) 19 U/L (15-37); Alanine Aminotransfer ALT/SGPT 25 U/L (13-56); Albumin, Serum 3.9 g/dL (3.2-5.0); Alkaline Phosphatase 57 U/L (45-117); Anion Gap 7 (5-15); BUN 7 mg/dL (7-18); BUN/Creat Ratio 8.1 RATIO (10-20); Calcium,Total 8.9 mg/dL (8.5-10.1); Chloride 107 mmol/L (98-107); Cholesterol 219 mg/dL (200); Creatinine, Serum 0.86 mg/dL (0.55-1.02); EST Glomerular Filtration Rate 74 mL/min (>60); Est Glom Filt Rate - Afr Amer 89 mL/min (>60); Globulin 3.4 g/dL (2.2-4.2); Glucose 102 mg/dL (74-106); High Density Lipoprotein 85 mg/dL; Potassium 4.5 mmol/L (3.5-5.1); Protein, Total 7.3 g/dL (6.4-8.2); Sodium Level 141 mmol/L (136-145); Triglycerides 101 mg/dL; Very Low Density Lipoprotein 20 mg/dL (5-40)
== END | disposition home or self-care (01) ==
LOC: BIMLAB 11:05
PROVIDERS: PCP Family Medicine; Referring Provider Family Medicine; Visit Provider Family Medicine
DX: Z00.00 Encounter for general adult medical examination without abnormal findings (principal); M51.27 Other intervertebral disc displacement, lumbosacral region
CPT/HCPCS: 36415; 80053; 80061

== ENCOUNTER → 2023-08-30 | Outpatient (CLI) | payer OTHER, SELFPAY ==
--- NOTE | 2023-08-30 12:29 | BI_ITS ---
MAMMOGRAPHY - BILATERAL SCREENING REASON FOR EXAM: Female, 47 years old. Routine annual screening examination. PERTINENT HISTORY: Aunt with breast cancer. TECHNIQUE: Digital bilateral breast varsha (3D mammographic acquisition) in the CC and MLO projections. 2-D mediolateral oblique (MLO) and craniocaudad (CC) views of both breasts were obtained. CAD: Full Field Digital Mammography with Computer Added Detection was performed. COMPARISON: Comparison is made with prior study dated August 29, 2022. FINDINGS: Breast Composition: The breasts are extremely dense, which lowers the sensitivity of mammography. There are no dominant masses or suspicious calcifications. Stable small benign-appearing bilateral axillary lymph nodes. No other significant abnormalities are identified. There has been no significant change since the prior study. BI/SCRN MAMM (CAD)W/VARSHA BILAT IMPRESSION: Stable bilateral screening mammogram. Yearly follow-up mammogram recommended. (A) ASSESSMENT CATEGORY: BIRADS Category 2: Benign. A letter regarding these results will be sent to the patient by the facility within 30 days. Approximately 10% of breast cancers are not detected by mammography. A normal mammogram should not delay biopsy of a clinically suspicious abnormality. [id number] Electronically Signed: Ivan Figueroa MD at 15:28 EST ,
--- OUTSIDE RECORDS SUMMARY | 2023-08-30 12:54 | XMS RPT_ITS | CCD ---
Author Name Unknown Address [address] [place] [address] [id number] [place] [address] Organization [facility] Care Team Providers Care Standards Engineer Name Role Phone KITTY CABRERA Unavailable Unavailable KITTY CABRERA Unavailable Unavailable Results Test Name Value Interpretation Reference Range Facil ity Encounters Encounter Date Encounter Type Care Provider Facility Start: 08-08-2018 End: 08-09-2018 Patient encounter procedure CABRERA TANG Facility:B Payers Date Payer Category Payer Private Health Insurance [id number] 1975 Unknown [id number] Progress note 08-16-2021 Note Date & Type Note Facility 08-16-2021 Note HNO ID: [id number] Author: Demarco Brock Service: ? Author Type: Intake Man Type: Progress Notes Filed: 08/16/2021 10:27 AM Note Text: Radiology Service Progress Note PATIENT NAME: Areli Pagan DATE OF SERVICE: August 16, 2021 TIME: 10:06 AM PATIENT IDENTITY VERIFICATION COMPLETED USING TWO (2) IDENTIFIERS: Name and Date of confirmed by patient verbally. FALL SCREENING: Has the patient had 2 falls in the last year or 1 fall with injury or currently using an Ambulatory Assistive Device (Walker, Cane, Wheelchair, Crutches, etc.)? No PATIENT GENDER DATA: Female. status: : No status: NO. PATIENT RELEVANT IMPLANT DATA REVIEWED: Not Applicable RADIOLOGY DEPARTMENT: Mammography PERIPHERAL IV DATA: Not applicable SIGNED BY: Demarco Brock August 16, 2021 10:[address] [facility] Progress note 08-14-2021 Note Date & Type Note Facility 08-14-2021 Note HNO ID: [id number] Author: Sheeba Tinsley [employer] Service: ? Author Type: Intake Man Type: Progress Notes Filed: 08/14/2021 3:06 PM Note Text: Radiology Service Progress Note PATIENT NAME: Areli Pagan DATE OF SERVICE: August 14, 2021 TIME: 2:49 PM PATIENT IDENTITY VERIFICATION COMPLETED USING TWO (2) IDENTIFIERS: Name and Date of confirmed by patient verbally. FALL SCREENING: Has the patient had 2 falls in the last year or 1 fall with injury or currently using an Ambulatory Assistive Device (Walker, Cane, Wheelchair, Crutches, etc.)? No PATIENT GENDER DATA: Female. status: : No status: NO. PATIENT RELEVANT IMPLANT DATA REVIEWED: Not Applicable RADIOLOGY DEPARTMENT: Mammography PERIPHERAL IV DATA: Not applicable SIGNED BY: Sheeba Tinsley [employer] August 14, 2021 2:[address] [facility] Progress note 07-28-2021 Note Date & Type Note Facility 07-28-2021 Note HNO ID: [id number] Author: Ursula Moore MD Service: ? Author Type: Physician Type: Progress Notes Filed: 07/28/2021 9:07 AM Note Text: Areli is a 45 year old who presents for an annual gynecologic exam with complaints, vaginal prurutis, used monistat one day and seems is better but would like to be checked. Went off of OCPs and had one or 2 periods and none since and doingw ell.. Some vaginal dryness. Menses: off ocps they had stopped. Contraception: none HPV vaccine: No Last Pap: 04/11/2020 normal HPV: 04/08/2020 negative History of abnormal pap: No Last mammogram: never Sexually active: Yes OB History T2 L2 SAB0 IAB0 Ectopic0 Multiple0 Live Births0 Costume Specialist History LMP: 02/01/2008, Ablation Age at Menarche: Age at First : Age at Menopause: Costume Specialist History Comments: Sexual Activity: Yes; Male; spouse vasectomy Contraception: Surgical PAST MEDICAL HISTORY Diagnosis Date - Eating disorder, unspecified - Mitral valve disorders(424.0) - Normal delivery 2000 - Panic disorder without agoraphobia - Squamous cell carcinoma 07/1018 chest PAST SURGICAL HISTORY Procedure Laterality Date - HYSTEROSCOPY, SURG; REMOVE MYOMA 02/19/08 revmoval fibroid - KNEE LEFT OP SURGERY 05/20/2013 leiomyoma - L'SCOPE DX W/WO BRUSHINGS/WASHINGS Laparoscopy - PAST SURGICAL HISTORY OF 02/19/08 thermochoice per RR FAMILY HISTORY Problem Relation Age of Onset - Allergies Mother - Allergies Father - Colon Cancer Other MGAUNT - Alcohol/Drug Paternal Grandfather - Alcohol/Drug Paternal Grandmother - other (bening lump in breast) Maternal Grandmother SOCIAL HISTORY Social History Tobacco Use - Smoking status: Never Smoker - Smokeless tobacco: Never Used Substance Use Topics - Alcohol use: Yes Comment: OCCASIONALLY - Drug use: No REVIEW OF SYSTEMS Abdomen: No abdominal pain, nausea, vomiting, diarrhea, or constipation. No bloating, early satiety, indigestion, or increased flatulence. Bladder: No dysuria, gross hematuria, urinary frequency, urinary urgency, or incontinence. Breast: No breast lumps, nipple d/c, overlying skin changes, redness or skin retraction. Allergies and current medication updated:Yes EXAM: Ht 5' 4.75 (1.65m) Wt 165 lb (74.8kg) LMP 02/01/2008 BMI 27.66 kg/(m2). GENERAL: pleasant, female in no apparent distress HEENT: Normocephalic, atraumatic, mucus membranes moist and no lesions NECK: Supple, full range of motion, no adenopathy and thyroid normal DERMATOLOGY: Normal, without lesions, non-icteric and non-hirsute BREAST: soft, non-tender, symmetric, no dominant mass, normal nipple-areolar complex, no lymphadenopathy and no nipple discharge CHEST: Normal inspiratory effort ABDOMEN: soft, non-tender and no masses PELVIC: external genitalia normal, normal Bartholin's glands, urethra, [place]'s glands, no vulvar lesions, no cervical lesions, good vaginal support, physiologic discharge present, normal appearing perineal body and perianal region BIMANUAL: uterus normal size, shape and consistency, no adnexal masses and non-tender RECTOVAGINAL: deferred. NEURO: alert and oriented x3,exam grossly non-focal EXTREMITIES: normal ASSESSMENT/PLAN: 1) Health maintenance: Pap/HPV up to date. Mammogram ordered. 2) Contraception: combined hormonal contraceptives. Contraceptive options reviewed and information provided. 3) STD screening: Declined STD check. 4) Follow up one year or sooner as needed d/w her symptomatic measures reviewed Ursula Moore MD [facility] Summary Purpose Family History No Family History Records FoundNo Family History Records Found Advance Directives No Advanced Directives Records FoundNo Advanced Directives Records Found Additional Source Comments INFORMATION SOURCE (unrecogn ized section and content) DATE CREATED AUTHOR AUTHOR'S ORGANIZ ATION 10/19/2021 [facility] FOR RECORDS PERTAINING TO PATIENTS WHO ARE OR HAVE BEEN ENROLLED IN A CHEMICAL DEPENDENCY/SUBSTANCEABUSE PROGRAM, SOME INFORMATION MAY BE OMITTED. This clinical summary was aggregated from multiple sources. Caution should be exercised in using it in the provision of clinical care. This summary normalizes information from multiple sources, and as a consequence, information in this document may materially change the coding, format and clinical context of patient data. In addition, data may be omitted in some cases. CLINICAL DECISIONS SHOULD BE BASED ON THE PRIMARY CLINICAL RECORDS. [facility] [employer] provides no warranty or guarantee of the accuracy or completeness of information in this document.
== END | disposition home or self-care (01) ==
LOC: OPBI 12:27
PROVIDERS: PCP Family Medicine; Referring Provider Obstetrics & Gynecology; Visit Provider Obstetrics & Gynecology
DX: Z12.31 Encounter for screening mammogram for malignant neoplasm of breast (principal)
CPT/HCPCS: 77063; 77067

== ENCOUNTER 2023-11-26 10:38 | Emergency (ER) | payer OTHER, SELFPAY ==
[2023-11-26 10:39] VITALS: BP 126/87; PULSE 78; RESP 16; TEMP 36.3; O2SAT 100; BMI 28.6
--- NOTE | 2023-11-26 11:17 | ED.RN ---
per dr. 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 does not need a sitter
[2023-11-26 11:46] LABS: Amphetamine Urine VISTA NEGATIVE (<1000 ng/mL); Barbiturate Urine VISTA NEGATIVE (< 200 ng/mL); Benzodiazepine Urine VISTA NEGATIVE (< 200 ng/mL); Cocaine Urine VISTA NEGATIVE (< 300 ng/mL); Ecstacy Urine VISTA NEGATIVE (< 500 ng/mL); Methadone Urine VISTA NEGATIVE (< 300 ng/mL); PCP Urine VISTA NEGATIVE (< 25 ng/mL); THC Urine VISTA NEGATIVE (< 50 ng/mL); Vista UDS pH Range 7
[2023-11-26 11:49] LABS: Alcohol, Blood (Medical)-Serum < 3.0 mg/dL
[2023-11-26 11:53] LABS: Internal QC Validated? YES +Cl - CLEAR BKGD; Pregnancy, Serum, hCG Quali. NEGATIVE Negative
[2023-11-26 11:56] LABS: Anion Gap 7 (5-15); BUN 6 mg/dL (7-18); BUN/Creat Ratio 7.9 RATIO (10-20); Chloride 108 mmol/L (98-107); Creatinine, Serum 0.76 mg/dL (0.55-1.02); EST Glomerular Filtration Rate 85 mL/min (>60); Est Glom Filt Rate - Afr Amer 103 mL/min (>60); Estimated Creatinine Clearance 88.27 ml/min; Glucose 103 mg/dL (74-106); Potassium 4.5 mmol/L (3.5-5.1); Sodium Level 137 mmol/L (136-145)
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
--- NOTE | 2023-11-26 12:07 | NURSING ---
CBC CLOTTED, NEEDS REDRAWN
[2023-11-26 12:29] LABS: Absolute Lymphocyte Count 1.67 X10^3/uL (0.83-4.51); Absolute Neutrophil Count 5.5 X10^3/uL (2.0-7.7); Basophil# 0.07 X10^3/uL; Basophil% 0.9 % (0-1); Eosinophil# 0.05 X10^3/uL; Eosinophils% 0.6 % (0-5); Hematocrit 43.2 % (37-47); Hemoglobin 14.5 g/dL (12.0-15.0); Lymphocyte # 1.67 X10^3/ul (0.83-4.51); Lymphocyte % 21.3 % (19-41); Mean Corp Hgb Conc 33.6 g/dL (32-36); Mean Corpuscular Hgb 29.4 pg (27.0-32.0); Mean Corpuscular Volume 87.6 fL (81-99); Mean Platelet Vol. 9.8 fl (6.2-12.0); Monocyte# 0.47 X10^3/uL; NRBC Flagged by Analyzer 0 % (0-5); Neutrophil # 5.47 X10^3/uL (2.7-7.7); Neutrophil % 69.8 % (47-70); Platelet Count 222 K/mm3 (150-450); RBC Distribution Width CV 12.5 % (11.6-14.6); RBC Distribution Width SD 39.8 fl (35.1-43.9); Red Blood Count 4.93 M/mm3 (4.2-5.4); White Blood Count 7.8 K/mm3 (4.4-11.0)
--- NOTE | 2023-11-26 13:42 | ED.RN ---
CRISIS AT BEDSIDE
[2023-11-26 15:39] VITALS: BP 118/73; PULSE 83; RESP 15; TEMP 36.9; O2SAT 97
== END 2023-11-26 15:40 | disposition home or self-care (01) ==
PROVIDERS: Emergency Provider Emergency Medicine; PCP Family Medicine; Visit Provider Emergency Medicine
DX: R45.851 Suicidal ideations (principal); F41.9 Anxiety disorder, unspecified; Z63.8 Other specified problems related to primary support group; F32.A Depression, unspecified; J45.909 Unspecified asthma, uncomplicated; K21.9 Gastro-esophageal reflux disease without esophagitis; Z79.899 Other long term (current) drug therapy
CPT/HCPCS: 80048; 80307; 80320; 84703; 85025; 99282; G0480

== ENCOUNTER 2023-12-11 08:00 | Outpatient (RCR) | payer OTHER, SELFPAY ==
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
--- NOTE | 2023-12-11 11:15 | BH.SGPN.GN ---
Behaviors/Verbalizations/Mental Status: []Pt alert and oriented, neatly dressed and groomed. Eye contact good. Motor activity appropriate. Speech within normal limits. Affect congruent, mood euthymic. Thoughts linear, logical, no signs of hallucinations or delusions. Client Response/Progress/Benefit: [] Pt responded well to session AEB Pt listening attentively to others and providing input during group discussion on the pay offs and costs of the different communication styles. Pt able to connect how current communication style impacts mental health. Connected with peers? comments about importance of using assertive communication. Pt did well being assertive in the group activity and practiced using assertive communication in the role playing scenarios. Pt helped their group develop assertive communication responses which pt reported helped her connect with peers on her first day. Pt seemed to benefit from increasing awareness of healthy strategies to improve communication. Will continue IOP tx to prevent decompensation, gain healthy coping skills, and improve daily functioning. ??? Narrative Note: []
[2023-12-11 12:19] VITALS: BP 132/76; PULSE 53
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
--- NOTE | 2023-12-11 12:44 | BH.DR.ITP ---
Initial Treatment Plan Patient Information Visit Information: ADMISSION DATE: EXPECTED LOS: 4-6 weeks Problems/Symptoms Problem #1:: Anxiety Symptom:: Worry, rumination Problem #2:: Depression Symptom:: Sadness, hopelessness, anhedonia, biological disruption of appetite, decreased concentration, recent passive thoughts of and recent thoughts of self-harm
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
--- NOTE | 2023-12-13 09:00 | BH.SGPN.GN ---
Behaviors/Verbalizations/Mental Status: []Pt alert and oriented, casually dressed and groomed. Eye contact good. Motor activity appropriate. Speech within normal limits. Affect constricted-tearful at times, mood depressed. Thoughts linear, logical, no signs of hallucinations or delusions. Reviewed pt?s symptom tracker, no risk for suicidal ideation, plan, or intent 12/13/23. Client Response/Progress/Benefit: []Pt responded somewhat well to session, was engaged in icebreaker, but declined to share during daily check-in. Pt was tearful several times while peers were checking in and pt had to go out in the hallway for a moment to manage her emotions. Pt appeared to benefit from group connection and support. Pt will meet with her individual therapist today. Pt will continue IOP tx to prevent decompensation, improve daily functioning, and increase healthy coping skills. Narrative Note: []
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
--- NOTE | 2023-12-16 10:15 | BH.SGPN.GN ---
Behaviors/Verbalizations/Mental Status: []Pt alert and oriented, neatly dressed and groomed. Eye contact good. Motor activity appropriate. Speech within normal limits. Affect congruent, mood euthymic. Thoughts linear, logical, no signs of hallucinations or delusions. Client Response/Progress/Benefit: [] Pt responded well to session, contributing to discussion, and engaged during the activity. Group identified the benefits of change which included: increased confidence, improving mental health, and making progress. Worked with the group to identify barriers to change, which included: uncomfortable emotions such as anxiety and fear, lack of energy, worried about what others will think, and fear of the unknown. Pt participated along with group in activity where they identified and discussed the emotions related to change. Pt shared change is hard, but ?we have to accept reality.? Benefited from increased awareness and understanding of emotions, benefits, and barriers related to change. Will talk with her IOP therapist today to discuss plan of care. Narrative Note: []
--- NOTE | 2023-12-16 13:58 | BH.DS_ITS ---
Discharge Summary Demographics Date of Admission:: 12/11/23 Discharge Date: 12/16/23 Presenting Problems at Admission:: The patient is a 48-year-old , female with a history of depression, anxiety who was referred to the [facility] behavioral health [facility] by the crisis center. The patient went to the emergency room on November 26, 2023 because she felt hopeless and grabbed a knife and made a gesture of self-harm while having an argument with her . The patient was intoxicated with alcohol at the time and the patient's spouse took the knife away. The patient has been for 29 years and has been having significant marital issues for several years. The patient lives with her and her 2 adult sons both moved out of state 6 months ago and finished college. 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 Discharge Diagnoses:: 1. Major depressive disorder, recurrent, severe without psychosis F33.2 2. Generalized anxiety disorder 3. Primary support issues Reason for Discharge:: Pt stated her main concern is relationship with and has not found group therapy to be beneficial at this time. Pt stated she would like to discharge from program so she can do individual counseling and hopefully couples counseling. Treatment Progress During Treatment & Response: Limited progress noted due to pt being in program for 4 days. Pt's sessions had been focused on if her cheated on her and she had a difficult time focusing on anything else. Pt struggled with engagement in group sessions per pt's report because she was consumed by anxieties connected to her 's potential infidelity, Issues Still to be Addressed:: Pt could benefit from couples counseling, anxiety reduction strategies and skills, interrupting obsessive thinking, and challenging distorted thoughts. Discharge Recommendations/Instructions:: Pt had elected to discharge from [facility] so aftercare was not established prior to discharge. Pt was provided local resources for individual and couples counselors in the area. Discharge Handout
--- NOTE | 2023-12-16 15:02 | BH.MDN_ITS ---
Multi-Disciplinary Note Note 45-min Individual: Time Started:: 09:20 Date: 12/16/23 Purpose of session/treatment goals addressed:: Purpose of session was to discuss plan for IOP because client had expressed possibly discharging from the program due to wanting individual therapy instead. Eye Contact:: Good Motor Activity:: Appropriate Appearance:: Neat Speech:: Appropriate Mood:: Euthymic and Anxious Affect:: Congruent Thoughts:: Linear, Logical, Circular (at times) and No evidence of hallucinations/delusions noted Staff Interventions:: CBT techniques, discharge planning and strengths perspective Client Response:: Client stated she mostly kept to herself over the weekend and didn't interact with her very often. Client reported she thought having space from him could be helpful and shared, felt good to give him the cold shoulder. Client stated that drove him nuts and that led to him in a way breaking down Saturday requesting a talk about what is happening. Client stated some the things her said yesterday really made her think and questioned if she was letting her anxious thoughts get ahead of her. Client reported she recognizes that he has been doing a lot to try to prove to her that he is being faithful and if he related more to be with her he could just leave. Client stated her anxiety is much better today and is trying to look more at the facts of the situation versus her what if thoughts. Client stated she does not think that she really needs group therapy and intensive program at this time. Client stated she plans to reach out to the individual therapist provided to her on Saturday and the couples counselor as well to establish with them. Client stated she would like to discharge from [facility] today. Client encouraged to reach out to [facility] if things were worsen or if she needs additional referrals for outpatient counseling. Client agreeable to plan. Risks/Concerns:: Denies suicide ideation, plan, or intention. Progress Toward Goals/Plan:: Client only in program for 3 sessions and has elected to discharge from the program due to not feeling like this is the right level of care for her. Client would like to step down to outpatient individual counseling and couples counseling because she thinks that would be most effective for her given her marriage situation. Client provided with referrals and recommendations for individual and couples counselors. Plan is for client to establish with an outpatient counselor and if needed to call [facility] to get additional referrals. Time Stopped:: 10:00
== END 2023-12-16 12:27 | disposition home or self-care (01) ==
LOC: BHIOP 08:00
PROVIDERS: PCP Family Medicine; Referring Provider Psychiatry & Neurology Psychiatry; Visit Provider Psychiatry & Neurology Psychiatry
DX: F33.2 Major depressive disorder, recurrent severe without psychotic features (principal); F41.1 Generalized anxiety disorder
CPT/HCPCS: S9480; 90834; 90853

== ENCOUNTER → 2023-12-11 | Outpatient (CLI) | payer OTHER, SELFPAY ==
[2023-12-11 14:03] LABS: Vitamin D,25 Hydroxy 29.3 ng/mL
[2023-12-11 14:07] LABS: Follicle Stimulating Hormone 116.5 mIU/mL; Luteinizing Hormone 50.5 mIU/mL; Thyroid Stim Hormone (TSH) 1.05 uIU/mL (0.358-3.74)
--- NOTE | 2023-12-18 11:04 | BH.COMM ---
Communication Note Communication with Client Communication Note: Called client at this time to discuss lab results (after discussion with Dr. Smith) since client has been discharged from [facility]. Client denies questions.
== END | disposition home or self-care (01) ==
PROVIDERS: PCP Family Medicine; Referring Provider Psychiatry & Neurology Psychiatry; Visit Provider Psychiatry & Neurology Psychiatry
DX: E55.9 Vitamin D deficiency, unspecified (principal)
CPT/HCPCS: 36415; 82306; 83001; 83002; 84443

== ENCOUNTER → 2024-01-15 | Outpatient (CLI) | payer OTHER, SELFPAY ==
[2024-01-17 08:13] LABS: Chlamydia By Nucleic Acid AMP Negative (Negative); Gonococcus By Nucleic Acid AMP Negative (Negative)
[2024-01-21 15:07] LABS: HPV APTIMA, High Risk Negative (Negative)
== END | disposition home or self-care (01) ==
LOC: LABSPEC 11:53
PROVIDERS: PCP Family Medicine; Referring Provider Nurse Practitioner Family; Visit Provider Nurse Practitioner Family
DX: Z20.2 Contact with and (suspected) exposure to infections with a predominantly sexual mode of transmission (principal); Z78.0 Asymptomatic menopausal state
CPT/HCPCS: 87491; 87591; 87624; 88175; G0145

== ENCOUNTER → 2024-08-03 | Outpatient (CLI) | payer OTHER, SELFPAY ==
[2024-08-03 12:26] LABS: Erythrocyte Sedimentation Rate 3 mm/hr (0-30)
[2024-08-03 12:42] LABS: Anion Gap 6 (5-15); BUN 12 mg/dL (7-18); BUN/Creat Ratio 14.1 RATIO (10-20); Calcium,Total 9.6 mg/dL (8.5-10.1); Chloride 106 mmol/L (98-107); Cholesterol 238 mg/dL (200); Creatinine, Serum 0.85 mg/dL (0.55-1.02); EST Glomerular Filtration Rate 75 mL/min (>60); Est Glom Filt Rate - Afr Amer 91 mL/min (>60); Glucose 115 mg/dL (74-106); High Density Lipoprotein 75 mg/dL; Sodium Level 139 mmol/L (136-145); Triglycerides 99 mg/dL; Very Low Density Lipoprotein 20 mg/dL (5-40)
== END | disposition home or self-care (01) ==
LOC: BIMLAB 10:12
PROVIDERS: PCP Family Medicine; Referring Provider Family Medicine; Visit Provider Family Medicine
DX: Z00.00 Encounter for general adult medical examination without abnormal findings (principal)
CPT/HCPCS: 36415; 80048; 80061; 85652